=== PATIENT | male | born 1950 | race Caucasian/White ===

== ENCOUNTER 2020-04-26 17:07 | Emergency (ER) | payer OTHER, SELFPAY ==
--- NOTE | ~2020-04-26 | US_ITS ---
EXAMINATION: US venous doppler LE RT DATE: 04/26/2020 17:33 INDICATION: Right lower limb pain, swelling and erythema. TECHNIQUE: Grayscale ultrasound images without and with compression and Doppler ultrasound images of the right lower extremity veins were obtained. COMPARISON: None. FINDINGS: The visualized portions of right common femoral vein, profunda (deep) femoral vein, femoral vein, pop liteal vein, peroneal trunk, posterior tibial veins, peroneal veins, gastrocnemius vein and greater s aphenous vein outflow are patent. IMPRESSION: 1. No deep venous thrombosis in the right lower limb. Reviewed, dictated and finalized at location A.
[2020-04-26 17:10] VITALS: BP 156/66; PULSE 85; RESP 20; TEMP 36.7; O2SAT 98
[2020-04-26 17:26] LABS: Basophils Percent Auto 0.5 % (0.2-1.2); Eosinophils Absolute Auto 0.1 K/mm3 (0-0.3); Eosinophils Percent Auto 0.7 % (0-4.4); Hematocrit 38.3 % (42.0-52.0); Hemoglobin 13.3 g/dL (14.0-18.0); Immature Granulocyte Absolute 0.05 K/mm3 (0.00-0.031); Immature Granulocyte Percent A 0.6 % (0-0.5); Lymphocytes Absolute Auto 1.22 K/mm3 (0.9-3.2); Lymphocytes Percent Auto 15.1 % (18.3-44.2); Mean Corpuscular HGB Conc 34.7 g/dl (32-36); Mean Corpuscular Hemoglobin 30.5 pg (26-34); Mean Corpuscular Volume 87.8 fl (80-100); Mean Platelet Volume 9.7 fl (7.4-10.4); Monocytes Absolute Auto 0.8 K/mm3 (0.1-0.6); Monocytes Percent Auto 9.3 % (2.6-8.5); Neutrophils Percent Auto 73.8 % (45.5-73.1); Platelet Count Result 189 k/mm3 (150-375); Red Blood Count 4.36 M/mm3 (4.6-6.20); Red Cell Distribution Width 13.2 % (11.5-14.5); White Blood Count 8.1 K/mm3 (4.5-10.0)
--- NOTE | 2020-04-26 17:28 | ED.LOWEXIN ---
HPI - Extremity Injury (Lower) General Chief Complaint: Extremity Injury, Lower Stated Complaint: swollen calf Time Seen by Provider: 04/26/20 17:08 Source: patient Mode of arrival: ambulatory Limitations: no limitations History of Present Illness HPI Narrative: Patient is a 69-year-old male who presents to emergency department for evaluation of right leg pain noting some redness and swelling of the li just below the mid li to just above the level of the ankle is a mild aching pain with some swelling and discoloration. Patient denies injury or trauma notes that he was working in the yard prior to onset. Patient denies any fever chills nausea vomiting radicular symptoms or paresthesias or similar occurrence and has not taken anything for his symptoms Related Data Allergies Allergy/AdvReac Type Severity Reaction Status Date / Time heparin Allergy Severe SOB Verified 04/26/20 17:16 Review of Systems Review of Systems: All systems reviewed & are unremarkable except as noted in HPI and below PMFSH Past Medical History Medical History (Updated 04/26/20 @ 18:24 by Dominick Roberts PA-C) Hypertension Obesity Social History Social History (Updated 04/26/20 @ 18:20 by Dominick Roberts PA-C) Smoking status: Never smoker Exam Narrative: Exam Narrative: GENERAL: Well-appearing, well-nourished, and in no acute distress. HEAD: Normocephalic, atraumatic. EYES: PERRLA and EOMI. ENT: Nares clear, no rhinorrhea or epistaxis. Mucous membranes moist. CHEST: Clear to auscultation. No respiratory distress. No wheezes rales or rhonchi HEART: Regular rate and rhythm. No murmur heard. Normal peripheral pulses. EXTREMITIES: Normal range of motion. 1+ edema to the bilateral lower extremities with slightly increased swelling on the right mid li to just above the ankle with slight pink tissue no drainage no lymphangitic streaking or fluctuant lesions SKIN: Warm, dry, no rash. NEURO: No focal deficits. Alert and oriented x3. Neurovascularly intact. Capillary refill less than 2 seconds. Normal gait PSYCH: Normal mood and affect. Course Course Emergency Course: Patient in the room at this time in no distress aware of case findings treatment plan and diagnosis Vital Signs Vital signs: Vital Signs Temperature 98.1 F 04/26/20 17:10 Pulse Rate 85 04/26/20 17:10 Respiratory Rate 20 04/26/20 17:10 Blood Pressure 156/66 H 04/26/20 17:10 Pulse Oximetry 98 04/26/20 17:10 Temperature 98.1 F 04/26/20 17:10 Pulse Rate 85 04/26/20 17:10 Respiratory Rate 04/26/20 17:10 Blood Pressure 156/66 H 04/26/20 17:10 Pulse Oximetry 98 04/26/20 17:10 MDM - Extremity Injury (Lower) MDM Narrative Medical decision making narrative: Patients injury or pain is consistent with musculoskeletal etiology. No signs of neurological or vascular compromise on exam. Compartments and tisues are soft without signs of compartment syndrome. Pain is felt appropriate for further evaluation on an outpatient basis. Patient will be covered for cellulitis advised to follow with primary care and given reasons to return Medical Records Medical records narrative: Lab Data Result diagrams: 04/26/20 17:19 04/26/20 17:19 Labs: Lab Results 04/26/20 04/26/20 Range/Units 17:19 17:19 WBC 8.1 (4.5-10.0) K/mm3 RBC 4.36 L (4.6-6.20) M/mm3 Hgb 13.3 L (14.0-18.0) g/dL Hct 38.3 L (42.0-52.0) % MCV 87.8 (80-100) fl MCH 30.5 (26-34) pg MCHC 34.7 (32-36) g/dl RDW 13.2 (11.5-14.5) % Plt Count 189 (150-375) k/mm3 MPV 9.7 (7.4-10.4) fl Immature Gran % (Auto) 0.6 H (0-0.5) % Neut % (Auto) 73.8 H (45.5-73.1) % Lymph % (Auto) 15.1 L (18.3-44.2) % [place] % (Auto) 9.3 H (2.6-8.5) % Eos % (Auto) 0.7 (0-4.4) % Baso % (Auto) 0.5 (0.2-1.2) % Lymph # (Auto) 1.22 (0.9-3.2) K/mm3 [place] # (Auto) 0.8 H (0.1-0.6) K/mm3 Eos # (Auto) 0.1 (0-0.3) K/mm3 Bas
[2020-04-26 17:45] LABS: Alanine Aminotransferase 18 U/L (4-50); Albumin Level 4.2 g/dL (3.5-5.1); Alkaline Phosphatase 77 U/L (38-126); Aspartate Amino Transferase 21 U/L (17-59); Bilirubin,Total 1.3 mg/dL (0.2-1.3); Blood Urea Nitrogen 23 mg/dL (9-20); CRP < 0.5 mg/dL (<1.0); Carbon Dioxide 30 mmol/L (22-30); Chloride 103 mmol/L (98-107); Estimated CRCL calculation 70 ml/min; Estimated Glomerular Filt Rate 47; Glucose 158 mg/dL (75-110); Sodium 141 mmol/L (137-145)
[2020-04-26 17:48] LABS: Potassium 3.6 mmol/L (3.4-5.0)
[2020-04-26 18:52] VITALS: BP 132/78; PULSE 90; RESP 18; O2SAT 99
== END 2020-04-26 18:54 | disposition home or self-care (01) ==
PROVIDERS: Emergency Medicine Emergency Medical Services; Emergency Provider Emergency Medicine; PCP Internal Medicine
DX: M79.661 Pain in right lower leg (principal); I10 Essential (primary) hypertension; E66.9 Obesity, unspecified; Z68.41 Body mass index [BMI] 40.0-44.9, adult
CPT/HCPCS: 36415; 80053; 85025; 86140; 93971; 96374; 99284; J1100

== ENCOUNTER 2020-09-15 15:14 | Observation (INO) | payer OTHER, SELFPAY ==
[2020-09-15] VITALS (14 sets, daily range): BP systolic 120–148; BP diastolic 60–80; PULSE 0–77; RESP 16–27; TEMP 37.1–37.5; O2SAT 91–98; BMI 38.5
--- NOTE | ~2020-09-15 | CT_ITS ---
EXAMINATION:CT chest wo con DATE: 09/15/2020 18:43 INDICATION: Cough. TECHNIQUE: Computed tomography (CT) of the chest was performed without intravenous contrast. Automate d exposure control and iterative reconstruction technique were employed. The dose-length product (DLP ) was 757.19 mGy-cm. COMPARISON: Chest 2 views 02/11/2009 FINDINGS: There are patchy airspace and groundglass opacities in all lobes with a peripheral predomin ance, right worse than left, consistent with pneumonia. No pleural effusion. The heart size is normal . No pericardial effusion. There are coronary artery calcifications. There are calcifications of aort ic valve. There are changes of cholecystectomy. 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 There is mild thora cic spondylosis. IMPRESSION: 1. Multifocal pneumonia, right worse than left. Reviewed, dictated and finalized at location A. GE HAND
--- NOTE | 2020-09-15 16:06 | ECG_ITS ---
Measurements Intervals [place] Rate: 67 P: 56 RI: 180 QRS: 35 QRSD: 103 T: 45 QT: 418 QTc: 442 Interpretive Statements SINUS RHYTHM INCOMPLETE RIGHT BUNDLE BRANCH BLOCK BORDERLINE ST ABNORMALITY- ANTERIOR LEADS BORDERLINE ECG Electronically Signed On 09-16-2020 7:51:04 SOFTWARE DEVELOPMENT TEST ENGINEER by Kapil Mirza D.O.
--- NOTE | 2020-09-15 16:09 | ED.GENADULT ---
HPI - General Adult General Chief complaint: Weakness Stated complaint: COVID + difficulty breathing Time Seen by Provider: 09/15/20 15:44 Source: patient Mode of arrival: ambulatory Limitations: no limitations History of Present Illness HPI narrative: Patient is 69-year-old male complaining of cough, nonproductive, nausea and weakness that started couple days ago and worse today. Patient denies shortness of breath, chest pain, abdominal pain, vomiting, diarrhea or fever. Patient states that he tested positive for Covid approximately 1 week ago. Related Data Allergies Allergy/AdvReac Type Severity Reaction Status Date / Time heparin Allergy Severe SOB Verified 04/26/20 17:16 Review of Systems Review of Systems: All systems reviewed & are unremarkable except as noted in HPI and below Constitutional: Constitutional: Denies body ache(s), Denies chills, Denies excessive sweating, Denies fever(s), Denies headache(s), Denies lethargy and Denies weight loss Eyes: Eyes: Denies blurry vision, Denies change in vision and Denies loss of vision ENT: Denies dizziness, Denies ear discharge, Denies headache(s), Denies lip swelling, Denies epistaxis, Denies nasal congestion, Denies neck pain, Denies throat swelling and Denies tongue swelling Cardiovascular: Cardiovascular: Denies chest pain, Denies chest pain at rest, Denies chest pain with activity, Denies diaphoresis, Denies rapid heart rate, Denies edema, Denies irregular heart rhythm, Denies lightheadedness, Denies palpitations, Denies dyspnea and Denies dyspnea on exertion Respiratory: Respiratory: Denies chest congestion, Denies hemoptysis, Denies dyspnea and Denies dyspnea on exertion Gastrointestinal: Gastrointestinal: Denies abdominal pain, Denies melena, Denies hematochezia, Denies diarrhea, Denies nausea, Denies vomiting and Denies hematemesis Musculoskeletal: Musculoskeletal: Denies abnormal gait, Denies deformity, Denies joint swelling, Denies limited range of motion, Denies neck pain and Denies numbness Neurologic: Denies Abnormal speech present, Denies abnormal gait, Denies confusion, Denies dizziness, Denies headache(s), Denies focal weakness, Denies loss of vision, Denies numbness, Denies Other visual disturbances and Denies Sensory deficit (Neuro) Psychiatric: Psychiatric: Denies confusion, Denies depression, Denies auditory hallucinations, Denies homicidal ideation and Denies suicidal ideation Endocrine: Endocrine: Denies cold intolerance, Denies excessive sweating, Denies fatigue, Denies heat intolerance and Denies palpitations Hematologic/Lymphatic: Hematologic/Lymphatic: Denies easy bleeding and Denies easy bruising Allergic/Immunologic: Allergic/Immunologic: Denies lip swelling, Denies throat swelling and Denies tongue swelling PMFSH Past Medical History Medical History (Updated 09/15/20 @ 19:24 by Deandre Lloyd MD) Hypertension Obesity Social History Social History (Updated 04/26/20 @ 18:20 by Dominick Roberts PA-C) Smoking status: Never smoker Exam Const: General: ill appearing Orientation/consciousness: oriented to person, oriented to place, oriented to time, patient oriented x3 and No confusion Limitations: no limitations Other: Mild distress, obese HENMT: Head: normal to inspection, normocephalic and atraumatic Ears: hearing grossly normal bilaterally, TM normal on the right and TM normal on the left General nose exam: Normal external nose present, Normal nares present and No nasal discharge present Face and sinus: normal facial exam Mouth: Yes Normal oral and palatal mucosa present, Yes lip normal, Yes tongue normal and Yes oropharynx normal Throat: posterior oropharynx normal, tonsils normal and uvula midline Eyes: General: appearance normal, both eyes and all related structures Pupils: Equal, round and reactive pupils present EOM: EOMs intact bilaterally Neck: Neck: normal visual inspection, full ROM, no lymphadenopathy and no meningeal si
[2020-09-15] MEDS: PROMETHAZINE HCL 25 MG/ML AMPUL 12.5 MG IV PUSH (16:23)
[2020-09-15] MEDS: LACTATED RINGERS 1,000 ML 999 ML IV CONT (16:23)
[2020-09-15 16:37] LABS: Basophils Percent Auto 0.1 % (0.2-1.2); Hematocrit 37.2 % (42.0-52.0); Hemoglobin 13.6 g/dL (14.0-18.0); Immature Granulocyte Absolute 0.02 K/mm3 (0.00-0.031); Immature Granulocyte Percent A 0.3 % (0-0.5); Lymphocytes Absolute Auto 0.61 K/mm3 (0.9-3.2); Lymphocytes Percent Auto 8.5 % (18.3-44.2); Mean Corpuscular HGB Conc 36.6 g/dl (32-36); Mean Corpuscular Hemoglobin 30.7 pg (26-34); Mean Platelet Volume 10.3 fl (7.4-10.4); Monocytes Absolute Auto 0.5 K/mm3 (0.1-0.6); Monocytes Percent Auto 6.4 % (2.6-8.5); Neutrophils Percent Auto 84.7 % (45.5-73.1); Platelet Count Result 187 k/mm3 (150-375); Red Blood Count 4.43 M/mm3 (4.6-6.20); Red Cell Distribution Width 12.2 % (11.5-14.5); White Blood Count 7.1 K/mm3 (4.5-10.0)
[2020-09-15 16:46] LABS: Prothrombin Time 13.7 Seconds (11.1-14.7)
[2020-09-15 16:47] LABS: Partial Thromboplastin Time 27.3 SECONDS (22.3-36.8)
[2020-09-15 16:49] LABS: Lactic Acid Reflex 1.4 mmol/L (0.7-2.1)
[2020-09-15 16:52] LABS: Alanine Aminotransferase 28 U/L (4-50); Albumin Level 3.9 g/dL (3.5-5.1); Alkaline Phosphatase 88 U/L (38-126); Anion Gap 12 mmol/L (8-16); Aspartate Amino Transferase 50 U/L (17-59); Bilirubin,Total 2.3 mg/dL (0.2-1.3); Blood Urea Nitrogen 21 mg/dL (9-20); Calcium 8.7 mg/dL (8.4-10.2); Carbon Dioxide 31 mmol/L (22-30); Chloride 93 mmol/L (98-107); Estimated CRCL calculation 99 ml/min; Estimated Glomerular Filt Rate > 60; Glucose 137 mg/dL (75-110); Potassium 2.8 mmol/L (3.4-5.0); Sodium 136 mmol/L (137-145)
[2020-09-15 17:00] LABS: Troponin I 0.016 ng/mL (0.000-0.034)
--- NOTE | 2020-09-15 17:15 | PC.NURSE ---
patient alert. oriented. no distress. call light on. urinal given. patient wants a pillow.also notified patient that maintenance has been notified that thermostat in room is broken.
[2020-09-15] MEDS: KCL 20 MEQ/SW 100 ML 100 ML 50 MEQ IVPB (17:31)
--- NOTE | 2020-09-15 17:45 | PC.NURSE ---
patient keeps removing BP cuff and pulse ox. was discharged. came back to triage desk to advise staff that patient is having increasing anxiety and may end up leaving AMA if his anxiety is not treated.
--- NOTE | 2020-09-15 18:06 | PC.NURSE ---
resting on stretcher. IVF continue. K-rider continues on pump. patient on library monitor. updated on current treatment plan. has call light in reach. aware that he has CT of chest ordered.
[2020-09-15] MEDS: LORazepam INJ (*CRX) 2 MG/ML VIAL 1 MG IV PUSH (18:34)
--- NOTE | 2020-09-15 18:35 | PC.NURSE ---
plumbing service technician here to get patient for CT. patient refuses to go until he gets medication for anxiety. provider aware. order for Ativan 1mg IV. given. patient now back on stretcher for transport to CT.
--- NOTE | 2020-09-15 18:40 | PC.NURSE ---
patient to CT via stretcher.
--- NOTE | 2020-09-15 18:52 | PC.NURSE ---
patient's CT shows bilateral pneumonia. waiting for further orders from provider. c/o burning in arm from K-rider. will start another liter of NS to give during infusion.
--- NOTE | 2020-09-15 19:34 | PM.IMHP ---
H&P: HPI History of Present Illness Date/Time: 09/15/20 19:34 Chief complaint: Pneumonia, Nausea and Vomiting, Hypokalemia Narrative: This is a 69-year-old morbidly obese male with known past medical history of coronary artery disease and hypertension who presented to the hospital with a complaint of generalized weakness, nausea and vomiting. The patient relates that he tested positive for linares virus on September 04, 2020 and since then he has had intermittent fevers, ongoing coughing, and exertional shortness of breath. Today he vomited once. Associated symptoms include nonbloody diarrhea. The patient was evaluated emergency room this evening and did not require any supplemental oxygen. He was given IV fluids and found to have a low serum potassium of 2.8. CT chest was obtained in the emergency room today which demonstrated multifocal pneumonia, right worse than left. The patient denies any other significant symptoms at this time and on review he denies any headache, wheezing, chest pain, palpitations, abdominal pain, dysuria, hematuria, lower extremity swelling, or focal neurological deficits. The patient is not sure how he got Coronavirus but tells me that his was originally sick before him. The patient has been started on a K rider, IV antibiotics, and we been asked to admit the patient to the hospital for further care. Review of Systems Review of Systems: All systems reviewed & are unremarkable except as noted in HPI and below PMFSH Past Medical History Medical History Coronary artery disease Hypertension Obesity Surgical History Surgical History History of cholecystectomy Social History Social History Smoking status: Never smoker Alcohol intake: never Substance use: never Gender identity (if verbalized by the patient): Male Spiritual care concerns: No Comments family medical history reviewed and noncontributory. Meds Home Medications and Allergies Home Medications Medication Instructions Recorded Confirmed Type aspirin 81 mg PO DAILY 09/15/20 09/15/20 History atorvastatin 40 mg PO HS 09/15/20 09/15/20 History carvedilol 12.5 mg PO BID 09/15/20 09/15/20 History omeprazole 20 mg PO DAILY 09/15/20 09/15/20 History ranolazine 1,000 mg PO BID 09/15/20 09/16/20 History Allergies Allergy/AdvReac Type Severity Reaction Status Date / Time No Known Allergies Allergy Verified 09/15/20 22:52 Vital Signs Vital Signs - 24 hr 09/15/20 16:01 09/15/20 16:17 09/15/20 16:22 Temperature 37.1 C Pulse Rate 64 0 L 64 Respiratory Rate 18 Blood Pressure 120/68 Pulse Oximetry 93 91 09/15/20 16:30 09/15/20 16:45 09/15/20 17:00 Temperature Pulse Rate 73 72 Respiratory Rate 23 H 16 Blood Pressure Pulse Oximetry 95 98 96 09/15/20 17:15 09/15/20 17:30 09/15/20 17:45 Temperature Pulse Rate 76 72 77 Respiratory Rate 19 17 26 H Blood Pressure Pulse Oximetry 09/15/20 18:00 09/15/20 18:15 Temperature Pulse Rate 73 77 Respiratory Rate 27 H 19 Blood Pressure Pulse Oximetry Exam Const: General: cooperative, alert, awake and ill appearing Nutritional Appearance: obese morbidly obese Orientation/consciousness: patient oriented x3 HENMT: Head: normal to inspection General nose exam: Normal external nose present Face and sinus: normal facial exam Mouth: Yes Normal oral and palatal mucosa present and Yes oropharynx normal Eyes: Pupils: Equal, round and reactive pupils present EOM: EOMs intact bilaterally Neck: Neck: supple and no JVD Thyroid: thyroid normal Lymphatic: lymphadenopathy not noted Resp: Effort & Inspection: normal respiratory effort Auscultation: crackles ( bibasilar) Cardio: Rate: regular rate Rhythm: regular rhythm Heart sounds: no murmurs GI: Inspectio
[2020-09-15 19:42] LABS: Lactic Acid Reflex 1.1 mmol/L (0.7-2.1)
--- NOTE | 2020-09-15 21:30 | ADMGEN ---
This patient, Alber Romero, was admitted to [facility] Surg Room 322-01. Patient/family oriented to hospital policies and general routines including ID bracelet, bed and alarms, visiting hours, pain management, procedures, bathroom and other care routines, personal items, smoking policy, room service/diet, and visiting hours. Information on how to activate the Rapid Response Team has been discussed. Patient/Family are encouraged to report perceived risks to care and to ask questions if they do not understand what they are told or what they should do.
[2020-09-15] MEDS: KCL 20 MEQ/SW 100 ML 100 ML 25 MEQ IVPB (22:10)
[2020-09-15] MEDS: LACTATED RINGERS 1,000 ML 125 ML IV CONT (22:10)
[2020-09-16] VITALS (8 sets, daily range): BP systolic 110–155; BP diastolic 41–64; PULSE 65–80; RESP 16–20; TEMP 36.4–37.3; O2SAT 94–98
[2020-09-16 07:20] LABS: Basophils Percent Auto 0.2 % (0.2-1.2); Eosinophils Percent Auto 0.2 % (0-4.4); Hematocrit 31.7 % (42.0-52.0); Hemoglobin 11.2 g/dL (14.0-18.0); Immature Granulocyte Absolute 0.02 K/mm3 (0.00-0.031); Immature Granulocyte Percent A 0.4 % (0-0.5); Lymphocytes Absolute Auto 0.75 K/mm3 (0.9-3.2); Lymphocytes Percent Auto 16.4 % (18.3-44.2); Mean Corpuscular HGB Conc 35.3 g/dl (32-36); Mean Platelet Volume 10.4 fl (7.4-10.4); Monocytes Absolute Auto 0.5 K/mm3 (0.1-0.6); Monocytes Percent Auto 10.5 % (2.6-8.5); Neutrophils Absolute Auto 3.3 K/mm3 (1.3-6.7); Neutrophils Percent Auto 72.3 % (45.5-73.1); Platelet Count Result 143 k/mm3 (150-375); Red Blood Count 3.73 M/mm3 (4.6-6.20); Red Cell Distribution Width 12.1 % (11.5-14.5); White Blood Count 4.6 K/mm3 (4.5-10.0)
[2020-09-16 07:31] LABS: Anion Gap 7 mmol/L (8-16); Blood Urea Nitrogen 21 mg/dL (9-20); Carbon Dioxide 35 mmol/L (22-30); Chloride 94 mmol/L (98-107); Estimated CRCL calculation 108 ml/min; Estimated Glomerular Filt Rate > 60; Glucose 95 mg/dL (75-110); Potassium 2.6 mmol/L (3.4-5.0); Sodium 136 mmol/L (137-145)
[2020-09-16] MEDS: POTASSIUM CHLORIDE 20 MEQ TABLET 40 MEQ PO ×4 (09:09→22:07)
[2020-09-16] MEDS: PANTOPRAZOLE 40 MG TABLET PO (09:12)
[2020-09-16] MEDS: ASPIRIN 81 MG ENTERIC TABLET PO (09:12)
[2020-09-16] MEDS: carvediloL 12.5 MG TABLET PO ×2 (09:12→21:32)
[2020-09-16] MEDS: RANOLAZINE 500 MG TAB.ER.12H 1000 MG PO ×2 (09:13→21:34)
[2020-09-16 12:51] LABS: Potassium 2.7 mmol/L (3.4-5.0)
--- NOTE | 2020-09-16 14:33 | PM.IMPN ---
Progress Note: A&P Assessment and Plan (1) Pneumonia due to COVID-19 virus: Code(s): U07.1 - COVID-19; J12.89 - Other viral pneumonia Status: Acute Assessment and Plan: Chest CT demonstrated multifocal pneumonia, worse on right. Secondary to COVID-19. He tested positive for COVID-19 09/04. The majority of his symptoms have improved however he subsequently developed nausea and vomiting. He was treated with a full course of azithromycin outpatient. Discontinue IV antibiotics. He is not requiring supplemental oxygen so dexamethasone and remdesivir are not indicated. Blood and sputum cultures were obtained and are pending. Continue supportive care with bronchodilators, expectorant, and antitussive as needed. Continue droplet isolation. Continue to monitor. (2) Hypokalemia: Code(s): E87.6 - Hypokalemia Status: Acute Assessment and Plan: Likely secondary to nausea and vomiting. He is intolerant to IV KCl and refuses and further IV potassium. Continue PO supplementation. He is eating well with no further nausea or vomiting so I hope this will improve. Continue to monitor closely. Check urine creatinine and potassium. Check cortisol. (3) Nausea and vomiting: Qualifiers: Vomiting type: unspecified Vomiting Intractability: non-intractable Qualified Code(s): R11.2 - Nausea with vomiting, unspecified Code(s): R11.2 - Nausea with vomiting, unspecified Status: Resolved Assessment and Plan: Likely secondary to viral syndrome. He is tolerating his diet without any further nausea or vomiting. Continue antiemetics as needed. (4) Dehydration: Code(s): E86.0 - Dehydration Status: Resolved Assessment and Plan: Secondary to nausea and vomiting. Discontinue IV fluids as he is tolerating PO intake well and appears adequately hydrated. (5) Hypertension: Qualifiers: Hypertension type: unspecified Qualified Code(s): I10 - Essential (primary) hypertension Code(s): I10 - Essential (primary) hypertension Status: Chronic Assessment and Plan: Blood pressures are reasonably controlled. Last BP was 110/55. Continue carvedilol. Continue to monitor. (6) Coronary artery disease: Qualifiers: Coronary Disease-Associated Artery/Lesion type: unspecified vessel or lesion type [place] vs. transplanted heart: [place] heart Associated angina: without angina Qualified Code(s): I25.10 - Atherosclerotic heart disease of [place] coronary artery without angina pectoris Code(s): I25.10 - Atherosclerotic heart disease of [place] coronary artery without angina pectoris Status: Chronic Assessment and Plan: The patient has no complaints of angina. Continue ASA, carvedilol, and atorvastatin. Continue to monitor for any symptoms. (7) Obesity: Qualifiers: Obesity type: unspecified obesity type Obesity classification: unspecified obesity classification Serious obesity comorbidity presence: without serious comorbidity Qualified Code(s): E66.9 - Obesity, unspecified Code(s): E66.9 - Obesity, unspecified Status: Chronic Assessment and Plan: Healthy lifestyle choices were encouraged. He needs to implement exercise and calorie restrictions. (8) Chronic anemia: Code(s): D64.9 - Anemia, unspecified Status: Chronic Assessment and Plan: Likely multifactorial. Normocytic. At this time there is no signs or symptoms of acute blood loss. Will monitor H&H and transfuse p.r.n. Check iron studies, vitamin B12, and folate. Subjective Date/time seen: 09/16/20 14:33 Mr. Romero is a 69 y.o. male with PMH significant for CAD, HTN, and obesity who is seen in follow-up for COVID-19 infection complicated by vomiting and hypokalemia. He feels back to his regular self. He has not had any further vomiting. He has no nausea or abdominal pain. He is tolerati
[2020-09-16 17:29] LABS: Potassium 2.9 mmol/L (3.4-5.0)
[2020-09-16] MEDS: ATORVASTATIN 40 MG TABLET PO (21:32)
[2020-09-16] MEDS: ENOXAPARIN 40 MG/0.4 ML SYRINGE SUB-Q (21:34)
[2020-09-17] VITALS: BP 145/60; PULSE 73; PULSE 80; RESP 20; TEMP 37.8; O2SAT 93
[2020-09-17 04:00] VITALS: BP 122/63; PULSE 69; PULSE 71; RESP 18; TEMP 37.4; O2SAT 95
[2020-09-17 06:38] LABS: Basophils Percent Auto 0.2 % (0.2-1.2); Eosinophils Percent Auto 0.5 % (0-4.4); Hematocrit 30.3 % (42.0-52.0); Hemoglobin 10.7 g/dL (14.0-18.0); Immature Granulocyte Absolute 0.02 K/mm3 (0.00-0.031); Immature Granulocyte Percent A 0.5 % (0-0.5); Lymphocytes Absolute Auto 0.87 K/mm3 (0.9-3.2); Lymphocytes Percent Auto 21.5 % (18.3-44.2); Mean Corpuscular HGB Conc 35.3 g/dl (32-36); Mean Corpuscular Hemoglobin 30.4 pg (26-34); Mean Corpuscular Volume 86.1 fl (80-100); Mean Platelet Volume 9.8 fl (7.4-10.4); Monocytes Absolute Auto 0.4 K/mm3 (0.1-0.6); Monocytes Percent Auto 10.6 % (2.6-8.5); Neutrophils Absolute Auto 2.7 K/mm3 (1.3-6.7); Neutrophils Percent Auto 66.7 % (45.5-73.1); Platelet Count Result 143 k/mm3 (150-375); Red Blood Count 3.52 M/mm3 (4.6-6.20); Red Cell Distribution Width 12.4 % (11.5-14.5); White Blood Count 4.1 K/mm3 (4.5-10.0)
[2020-09-17 06:53] LABS: Anion Gap 5 mmol/L (8-16); Blood Urea Nitrogen 21 mg/dL (9-20); Calcium 7.9 mg/dL (8.4-10.2); Carbon Dioxide 31 mmol/L (22-30); Chloride 101 mmol/L (98-107); Estimated CRCL calculation 121 ml/min; Estimated Glomerular Filt Rate > 60; Glucose 109 mg/dL (75-110); Magnesium 2.1 mg/dL (1.6-2.3); Potassium 3.3 mmol/L (3.4-5.0); Sodium 137 mmol/L (137-145)
[2020-09-17 07:20] LABS: Cortisol Random 9.94 ug/dL
[2020-09-17 07:28] LABS: Iron 27 ug/dL (49-181)
[2020-09-17 07:37] LABS: Percent Iron Saturation 12 % (20-50)
[2020-09-17 07:55] LABS: Folic Acid 15.7 ng/mL (2.76->20)
[2020-09-17 08:00] VITALS: O2SAT 94
[2020-09-17 08:40] VITALS: BP 124/59; PULSE 65; RESP 18; TEMP 36.4; O2SAT 95
--- NOTE | 2020-09-17 09:55 | PM.DS ---
DS: Admitting Diagnosis Admitting Diagnosis Admitting Diagnosis: Pneumonia, Nausea and Vomiting, Hypokalemia DS: Discharge Diagnosis Discharge Diagnosis (1) Nausea and vomiting: Qualifiers: Vomiting Intractability: non-intractable Vomiting type: unspecified Qualified Code(s): R11.2 - Nausea with vomiting, unspecified Code(s): R11.2 - Nausea with vomiting, unspecified Status: Resolved Assessment and Plan: Discharge Summary (Date of service 09/17/20): Mr. Romero is a 69 y.o. male with PMH significant for CAD, HTN, and obesity who presented to the emergency department for the evaluation of generalized weakness, nausea, and vomiting. He tested positive for COVID-19 09/04/20. He noted that the majority of his COVID-19 symptoms improved prior to admission, however he subsequently developed nausea and vomiting which prompted him to proceed to the emergency department. Initial workup in the emergency department included CT chest with multifocal pneumonia and potassium of 2.8. He was treated with IV antibiotics and dexamethasone in the emergency department and admitted to the hospitalist service. IV antibiotics were discontinued as pneumonia was felt secondary to COVID-19 and superimposed bacterial infection was felt unlikely. IV dexamethasone and remdesivir were not indicated since he was not hypoxic. He felt much better following admission. He did not have any further vomiting, nausea, or abdominal pain. He was tolerating his diet. Nausea and vomiting were felt secondary to viral syndrome and he did not have any further symptoms. He felt much better and requested to go home. He was discharged in hemodynamically stable condition 09/17/20. Signs and symptoms which would warrant immediate return to the emergency department were discussed with the patient and he verbalized understanding. Bilirubin was also noted to be elevated at 2.3 on admission. He has a hx of cholecystectomy. I called to leave a message with Dr. Guerrero's office regarding this finding so that he could have repeat labs. (2) Pneumonia due to COVID-19 virus: Code(s): U07.1 - COVID-19; J12.89 - Other viral pneumonia Status: Acute Assessment and Plan: Chest CT demonstrated multifocal pneumonia, worse on right. Secondary to COVID-19. He tested positive for COVID-19 09/04. The majority of his symptoms have improved however he subsequently developed nausea and vomiting. He was treated with a full course of azithromycin outpatient. IV antibiotics were discontinued as pneumonia was viral and superimposed bacterial infection was felt unlikely. He was not requiring supplemental oxygen so dexamethasone and remdesivir were not indicated. Blood cultures revealed no growth. Supportive care with bronchodilators, expectorant, and antitussive were available as needed. (3) Hypokalemia: Code(s): E87.6 - Hypokalemia Status: Acute Assessment and Plan: Likely secondary to nausea and vomiting. He is intolerant to IV KCl and refused and further IV potassium. PO potassium supplementation was given. He was eating well with no further nausea or vomiting so I anticipate his hypokalemia will resolve. He was given 7 days of PO potassium with repeat BMP ordered for 09/21/20 to check potassium and determine if further supplementation will be needed per his PCP. (4) Dehydration: Code(s): E86.0 - Dehydration Status: Resolved Assessment and Plan: Secondary to nausea and vomiting.IV fluids were discontinued 09/16 since he was tolerating PO intake well and appeared adequately hydrated. (5) Hypertension: Qualifiers: Hypertension type: unspecified Qualified Code(s): I10 - Essential (primary) hypertension Code(s): I10 - Essential (primary) hypertension Status: Chronic Assessment and Plan: Blood pressures were reasonably controlled. Carvedilol was continued. (6) Coronary artery disease
[2020-09-17] MEDS: RANOLAZINE 500 MG TAB.ER.12H 1000 MG PO (10:06)
[2020-09-17] MEDS: PANTOPRAZOLE 40 MG TABLET PO (10:06)
[2020-09-17] MEDS: ENOXAPARIN 40 MG/0.4 ML SYRINGE SUB-Q (10:06)
[2020-09-17] MEDS: ASPIRIN 81 MG ENTERIC TABLET PO (10:06)
[2020-09-17] MEDS: carvediloL 12.5 MG TABLET PO (10:06)
[2020-09-17] MEDS: POTASSIUM CHLORIDE 20 MEQ TABLET.ER 40 MEQ PO (10:07)
[2020-09-17 12:00] VITALS: PULSE 66
--- NOTE | 2020-09-17 13:38 | ADMGEN ---
This patient, Alber Romero, was admitted to [facility] Surg Room 322-01. Patient/family oriented to hospital policies and general routines including ID bracelet, bed and alarms, visiting hours, pain management, procedures, bathroom and other care routines, personal items, smoking policy, room service/diet, and visiting hours. Information on how to activate the Rapid Response Team has been discussed. Patient/Family are encouraged to report perceived risks to care and to ask questions if they do not understand what they are told or what they should do.
== END 2020-09-17 13:25 | disposition home or self-care (01) ==
LOC: ANHED 19:36 → ANH3MEDSUR 20:07
PROVIDERS: Physician Assistant; Admitting Provider Family Medicine; Emergency Provider Emergency Medicine; PCP Internal Medicine; Visit Provider Hospitalist
DX: U07.1 COVID-19 (principal); J12.89 Other viral pneumonia; R53.1 Weakness; I10 Essential (primary) hypertension; E66.9 Obesity, unspecified; Z68.38 Body mass index [BMI] 38.0-38.9, adult; I25.10 Atherosclerotic heart disease of native coronary artery without angina pectoris; E87.6 Hypokalemia; E86.0 Dehydration; D64.9 Anemia, unspecified; R11.2 Nausea with vomiting, unspecified
CPT/HCPCS: 36415; 71250; 80048; 80053; 82533; 82607; 82746; 83540; 83550; 83605; 83735; 84132; 84484; 85025; 85055; 85610; 85730; 87040; 93005; 96361; 96365; 96366; 96367; 96368; 96372; 96375; 99285; A9270; G0378; J0456; J0696; J1650; J2060; J2405; J2550; J3480; J7030; J7120

== ENCOUNTER 2021-04-20 07:29 | Observation (INO) | payer MEDICARE, SELFPAY ==
[2021-04-20] VITALS (15 sets, daily range): BP systolic 132–149; BP diastolic 52–73; PULSE 53–75; RESP 18–20; TEMP 36.1–36.4; O2SAT 95–100; BMI 39.0
--- NOTE | ~2021-04-20 | XR_ITS ---
EXAMINATION: XR chest 2V EXAM DATE: 04/20/2021 08:19 INDICATION: Left-sided chest pain. TECHNIQUE: Frontal and lateral projections of the chest obtained and reviewed. Comparison is made to prior examination from 02/11/2009. FINDINGS: The lungs are clear. There are no pleural effusions. The cardiomediastinal silhouette is within normal limits. There is no pneumothorax suspected. Old left 5th rib fracture posteriorly. IMPRESSION: No acute cardiopulmonary findings. Reviewed, dictated and finalized at location A.
--- NOTE | 2021-04-20 07:32 | ECG_ITS ---
Measurements Intervals [place] Rate: 64 P: 52 CT: 202 QRS: 24 QRSD: 103 T: 31 QT: 426 QTc: 442 Interpretive Statements SINUS RHYTHM BORDERLINE AV CONDUCTION DELAY INCOMPLETE RIGHT BUNDLE BRANCH BLOCK BASELINE ARTIFACT- III BORDERLINE ECG Electronically Signed On 04-20-2021 8:43:23 CDT by Kapil Mirza D.O.
--- NOTE | 2021-04-20 07:34 | ED.CHESTPAIN ---
HPI - Chest Pain General Chief Complaint: Chest Pain Stated Complaint: cp/sob Time Seen by Provider: 04/20/21 07:34 History of Present Illness HPI narrative: Patient is a 70-year-old male who presents ER with left-sided chest pain. He was walking down some stairs letting his dogs outside when he developed sudden onset left-sided chest pain. It then began to radiate down the left arm. He tried taking some nitroglycerin with only minimal relief. He felt short of breath and was diaphoretic. Contacted EMS. He was treated with morphine/Zofran/aspirin. This significantly improved his pain. Had not been having chest pain preceding this. Last nitro use was 5 months ago. Related Data Home Medications Medication Instructions Recorded Confirmed aspirin 81 mg PO BID 09/15/20 04/20/21 atorvastatin 40 mg PO DAILY 09/15/20 04/20/21 carvedilol 12.5 mg PO BID 09/15/20 04/20/21 omeprazole 20 mg PO DAILY 09/15/20 04/20/21 ranolazine 1,000 mg PO BID 09/15/20 04/20/21 lisinopril-hydrochlorothiazide 1 tablet PO DAILY 04/20/21 04/20/21 Allergies Allergy/AdvReac Type Severity Reaction Status Date / Time No Known Allergies Allergy Verified 04/20/21 10:13 Review of Systems Review of Systems: All systems reviewed & are unremarkable except as noted in HPI and below Constitutional: Constitutional: Denies chills, Denies fever(s) and Denies weakness Comments: Diaphoresis ENT: Denies nasal congestion and Denies sore throat Cardiovascular: Cardiovascular: Reports chest pain, Denies rapid heart rate and Reports radiating jaw, neck or arm pain Respiratory: Respiratory: Denies cough, Reports dyspnea and Denies wheezing Gastrointestinal: Gastrointestinal: Denies abdominal pain, Reports nausea and Denies vomiting [facility] Past Medical History Medical History (Updated 04/21/21 @ 15:18 by Marc Castillo MD) Chronic anemia Chronic, mild normocytic anemia. Coronary artery disease Cardiac catheterization in 2018 showed a 50% blockage, per patient report. No intervention undertaken. Gastroesophageal reflux disease Hyperlipidemia Hypertension Pancreatitis (09/2018) Surgical History Surgical History (Updated 04/20/21 @ 13:45 by Alexus Tran PA-C) History of arthroscopy of right knee History of cholecystectomy History of colonoscopy with polypectomy History of partial thyroidectomy History of surgical removal of ganglion cyst Left wrist. Family History Family History (Updated 04/20/21 @ 18:13 by Aniket March RN) Father Heart disease Mother Uterine cancer Social History Social History (Updated 04/20/21 @ 13:48 by Alexus Tran PA-C) Social History: The patient lives in [place] with his . 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 No alcohol or illicit substance abuse. He designates his , Roula, as his surrogate decision maker. Code status: Full code. Exam Narrative: Exam Narrative: GENERAL: Well-appearing, obese, and in no acute distress. HEAD: Normocephalic, atraumatic. ENT: Mucous membranes moist. CHEST: Clear to auscultation. No respiratory distress. HEART: Regular rate and rhythm. Normal peripheral pulses. ABDOMEN: Soft, nontender, nondistended. EXTREMITIES: Normal range of motion. 2+ edema. SKIN: Warm, dry, no rash. NEURO: Alert and oriented x3. PSYCH: Normal mood and affect. Course Course Emergency Course: Admit to hospitalist service for chest pain rule out. Vital Signs Vital signs: Vital Signs Temperature 97.6 F 04/20/21 07:26 Pulse Rate 66 04/20/21 07:26 Respiratory Rate 20 04/20/21 07:26 Blood Pressure 133/71 04/20/21 07:26 Pulse Oximetry 99 04/20/21 07:26 Temperature 97.3 F L 04/21/21 11:25 Pulse Rate 53 L 04/21/21 14:00 Respiratory Rate 18 04/21/21 11:25 Blood Pressure 126/46 L 04/21/21 11:25 Pulse Oximetry 99 04/21/21 11:25 MDM - Chest Pain Lab Data Result diagrams: 04/21/21 04:39 04/21/21 04:39
[2021-04-20 08:13] LABS: Basophils Percent Auto 0.6 % (0.2-1.2); Eosinophils Absolute Auto 0.1 K/mm3 (0-0.3); Eosinophils Percent Auto 0.9 % (0-4.4); Hematocrit 36.1 % (42.0-52.0); Hemoglobin 12.4 g/dL (14.0-18.0); Immature Granulocyte Absolute 0.02 K/mm3 (0.00-0.031); Immature Granulocyte Percent A 0.3 % (0-0.5); Lymphocytes Absolute Auto 1.35 K/mm3 (0.9-3.2); Lymphocytes Percent Auto 19.3 % (18.3-44.2); Mean Corpuscular HGB Conc 34.3 g/dl (32-36); Mean Corpuscular Hemoglobin 29.8 pg (26-34); Mean Corpuscular Volume 86.8 fl (80-100); Mean Platelet Volume 9.8 fl (7.4-10.4); Monocytes Absolute Auto 0.7 K/mm3 (0.1-0.6); Monocytes Percent Auto 9.6 % (2.6-8.5); Neutrophils Absolute Auto 4.8 K/mm3 (1.3-6.7); Neutrophils Percent Auto 69.3 % (45.5-73.1); Platelet Count Result 181 k/mm3 (150-375); Red Blood Count 4.16 M/mm3 (4.6-6.20); Red Cell Distribution Width 12.7 % (11.5-14.5)
[2021-04-20 08:26] LABS: Anion Gap 8 mmol/L (8-16); Blood Urea Nitrogen 26 mg/dL (9-20); Calcium 9.2 mg/dL (8.4-10.2); Carbon Dioxide 29 mmol/L (22-30); Chloride 103 mmol/L (98-107); Estimated CRCL calculation 95 ml/min; Estimated Glomerular Filt Rate > 60; Glucose 143 mg/dL (75-110); Potassium 2.9 mmol/L (3.4-5.0); Sodium 140 mmol/L (137-145)
[2021-04-20 08:27] LABS: Partial Thromboplastin Time 24.4 SECONDS (22.3-36.8); Prothrombin Time 13.4 Seconds (11.1-14.7)
[2021-04-20 08:37] LABS: Troponin I < 0.012 ng/mL (0.000-0.034)
[2021-04-20] MEDS: POTASSIUM CHLORIDE 20 MEQ TABLET 40 MEQ PO (09:43)
--- NOTE | 2021-04-20 10:07 | ADMGEN ---
This patient, Alber Romero, was admitted to IMU Room 210-01. Patient/family oriented to hospital policies and general routines including ID bracelet, bed and alarms, visiting hours, pain management, procedures, bathroom and other care routines, personal items, smoking policy, room service/diet, and visiting hours. Information on how to activate the Rapid Response Team has been discussed. Patient/Family are encouraged to report perceived risks to care and to ask questions if they do not understand what they are told or what they should do.
[2021-04-20 10:55] LABS: Troponin I < 0.012 ng/mL (0.000-0.034)
--- NOTE | 2021-04-20 13:15 | PM.IMHP ---
H&P: HPI History of Present Illness Date/Time: 04/20/21 13:15 <Alexus Tran PA-C - Last Filed: 04/20/21 23:52> Chief Complaint: Chest pain. <Alexus Tran PA-C - Last Filed: 04/20/21 23:52> Narrative: This is a 70-year-old male with history of coronary artery disease noted on cardiac catheterization in 2018 with reports of 50% blockage in an unknown vessel (per patient report), hypertension, hyperlipidemia, and GERD who presented to the emergency department earlier today from home for evaluation of chest pain. This morning he went to let the dogs out to go to the bathroom when he developed sudden onset of sharp pain in the left side of his chest radiating into the shoulder and down the arm. He also broke out in a cold sweat and was feeling somewhat short of breath. He has had similar symptoms occur in the past and was told by his study lead, Dr. Manley, that he likely suffers from angina and he was started on ranolazine. He did take 1 nitroglycerin and it seemed to help his discomfort. By that time EMS had arrived and when they loaded him on the rig he began to have pretty significant nausea and had dry heaves. EKG on arrival to the emergency department showed no acute ST segment changes and his troponins have been negative thus far. Due to his coronary artery disease he is being admitted overnight for further observation and for consultation with the study lead. At the time my evaluation he has no specific complaints and he is specifically denies current chest pain and shortness of breath. The pain does not feel similar to when he had pancreatitis before. 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 <Alexus Tran PA-C - Last Filed: 04/20/21 23:52> Review of Systems Review of Systems: Narrative: Twelve systems were reviewed with pertinent positives and negatives as per HPI. No fevers. No recent cold and flu symptoms. No orthopnea or PND. He has issues with intermittent right lower extremity edema and that has been ongoing for years and is unchanged. No history of DVT however he has had phlebitis in that leg before. He denies pleuritic pain. No syncope or near syncope. Except as documented, all other systems were reviewed and are negative. <Alexus Tran PA-C - Last Filed: 04/20/21 23:52> [facility] Past Medical History Medical History: Medical History (Updated 04/20/21 @ 23:47 by Alexus Tran PA-C) Chronic anemia Chronic, mild normocytic anemia. Coronary artery disease Cardiac catheterization in 2018 showed a 50% blockage, per patient report. No intervention undertaken. Gastroesophageal reflux disease Hyperlipidemia Hypertension Pancreatitis (09/2018) <Alexus Tran PA-C - Last Filed: 04/20/21 23:52> Surgical History Surgical History: Surgical History (Updated 04/20/21 @ 13:45 by Alexus Tran PA-C) History of arthroscopy of right knee History of cholecystectomy History of colonoscopy with polypectomy History of partial thyroidectomy History of surgical removal of ganglion cyst Left wrist. <Alexus Tran PA-C - Last Filed: 04/20/21 23:52> Family History Family History: Family History (Updated 04/20/21 @ 18:13 by Aniket March RN) Father Heart disease Mother Uterine cancer <Alexus Tran PA-C - Last Filed: 04/20/21 23:52> Social History Social History: Social History (Updated 04/20/21 @ 13:48 by Alexus Tran PA-C) Social History: The patient lives in [place] with his . 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 No alcohol or illicit substance abuse. He designates his , Roula, as his surrogate decision maker. Code status: Full code. <Alexus Tran PA-C - Last Filed: 04/20/21 23:52> Meds Home Medications and Allergi
[2021-04-20 14:01] LABS: Magnesium 1.9 mg/dL (1.6-2.3); Potassium 3.3 mmol/L (3.4-5.0)
[2021-04-20 14:14] LABS: Troponin I < 0.012 ng/mL (0.000-0.034)
[2021-04-20] MEDS: ACETAMINOPHEN 325 MG TABLET 650 MG PO (14:32)
[2021-04-20] MEDS: hydroCHLOROthiazide 25 MG TABLET PO (15:56)
[2021-04-20] MEDS: lisinopriL 20 MG TABLET PO (15:56)
[2021-04-20] MEDS: carvediloL 12.5 MG TABLET PO (20:59)
[2021-04-20] MEDS: RANOLAZINE 500 MG TAB.ER.12H 1000 MG PO (20:59)
[2021-04-21] VITALS (13 sets, daily range): BP systolic 126–145; BP diastolic 46–65; PULSE 53–67; RESP 18–20; TEMP 36.2–36.5; O2SAT 98–100
[2021-04-21] MEDS: POTASSIUM CHLORIDE 20 MEQ TABLET PO (01:44)
[2021-04-21 05:00] LABS: Hematocrit 32.3 % (42.0-52.0); Hemoglobin 11.4 g/dL (14.0-18.0); Mean Corpuscular HGB Conc 35.3 g/dl (32-36); Mean Corpuscular Hemoglobin 30.3 pg (26-34); Mean Corpuscular Volume 85.9 fl (80-100); Mean Platelet Volume 9.9 fl (7.4-10.4); Platelet Count Result 145 k/mm3 (150-375); Red Blood Count 3.76 M/mm3 (4.6-6.20); Red Cell Distribution Width 12.4 % (11.5-14.5)
[2021-04-21 05:17] LABS: Alanine Aminotransferase 23 U/L (4-50); Albumin Level 3.4 g/dL (3.5-5.1); Alkaline Phosphatase 69 U/L (38-126); Anion Gap 6 mmol/L (8-16); Aspartate Amino Transferase 20 U/L (17-59); Blood Urea Nitrogen 20 mg/dL (9-20); Calcium 9.2 mg/dL (8.4-10.2); Carbon Dioxide 30 mmol/L (22-30); Chloride 102 mmol/L (98-107); Estimated CRCL calculation 97 ml/min; Estimated Glomerular Filt Rate > 60; Glucose 116 mg/dL (75-110); Magnesium 1.7 mg/dL (1.6-2.3); Potassium 3.2 mmol/L (3.4-5.0); Sodium 138 mmol/L (137-145)
[2021-04-21] MEDS: carvediloL 12.5 MG TABLET PO (09:19)
[2021-04-21] MEDS: RANOLAZINE 500 MG TAB.ER.12H 1000 MG PO (09:19)
[2021-04-21] MEDS: ASPIRIN 81 MG ENTERIC TABLET PO ×2 (09:19→17:17)
[2021-04-21] MEDS: ATORVASTATIN 40 MG TABLET PO (09:19)
[2021-04-21] MEDS: hydroCHLOROthiazide 25 MG TABLET PO (09:19)
[2021-04-21] MEDS: lisinopriL 20 MG TABLET PO (09:20)
[2021-04-21] MEDS: PANTOPRAZOLE 40 MG TABLET PO (09:20)
--- NOTE | 2021-04-21 14:25 | PM.IMPN ---
Progress Note: A&P Assessment and Plan (1) Chest pain: Code(s): R07.9 - Chest pain, unspecified Status: Acute Assessment and Plan: 04/21/21 14:25 Patient is 70-year-old male moderately obese with history of coronary artery disease in 2018 on 04/20 patient was letting his dog out in the morning and he felt left-sided chest pain took nitroglycerin with little relief presented emergency depart for further evaluate, so far 3 sets of cardiac enzymes are negative and there are no acute changes on EKG, his pain has improved currently denies any chest pain shortness of breath palpitation fever or chills, patient will see immigration consultant, will go ahead order Lexiscan for tomorrow and further recommendation to follow. (2) Hypokalemia: Code(s): E87.6 - Hypokalemia Status: Acute Assessment and Plan: Will monitor and supple (3) Chronic anemia: Code(s): D64.9 - Anemia, unspecified Status: Acute Assessment and Plan: Will check iron profile and stool Hemoccult (4) Hypertension: Qualifiers: Hypertension type: unspecified Qualified Code(s): I10 - Essential (primary) hypertension Code(s): I10 - Essential (primary) hypertension Status: Chronic Assessment and Plan: Will continue home medication and monitor (5) Hyperlipidemia: Code(s): E78.5 - Hyperlipidemia, unspecified Status: Acute Assessment and Plan: Will continue home medication (6) Gastroesophageal reflux disease: Code(s): K21.9 - Gastro-esophageal reflux disease without esophagitis Status: Inactive Assessment and Plan: Will continue PPI Additional Plan The patient presents today with left-sided chest pain. EKG showed no acute changes and his troponins have been negative thus far. At this time he is being admitted for monitoring overnight. Continue to trend serial troponins. Cardiology consulted for recommendations as well, given his history. Continue ranolazine, aspirin, statin, and beta-marcos. Potassium will be replaced and monitored. As he is on a thiazide diuretic and has had issues with hypokalemia in the past, I am going to start him on 20 milliequivalents of potassium a day. Blood pressures were reviewed and they are reasonable but a bit high. Antihypertensives will be continued and blood pressures will be monitored closely. He has a chronic, mild anemia which is stable on review of previous labs. Continue statin and check LFTs. No acute issues with GERD, continue PPI. Subjective Date/time seen: 04/21/21 14:25 Patient is 70-year-old male moderately obese with history of coronary artery disease in 2018 on 04/20 patient was letting his dog out in the morning and he felt left-sided chest pain took nitroglycerin with little relief presented emergency depart for further evaluate, so far 3 sets of cardiac enzymes are negative and there are no acute changes on EKG, his pain has improved currently denies any chest pain shortness of breath palpitation fever or chills, patient will see immigration consultant, will go ahead order Lexiscan for tomorrow and further recommendation to follow. Review of Systems Review of Systems: All systems reviewed & are unremarkable except as noted in HPI and below Exam Narrative: Exam Narrative: Moderately obese Patient is comfortable, NAD HEENT: eyes are clear and none icteric LUNGS:CTA HEART: RR S1S2 ABD: BS+, Soft and nontender Lower extremities: no edema SKIN: nonjaundiced Neuro: grossly intact. Objective Data Vital Signs Vital Signs: Vital Signs - 24 hr 04/20/21 15:53 04/20/21 16:00 04/20/21 18:00 Temperature 97.4 F L Pulse Rate 54 L 57 L 57 L Respiratory Rate 18 Blood Pressure 142/61 H Pulse Oximetry 98 04/20/21 20:00 04/20/21 20:59 04/20/21 21:48 Temperature 97.1 F L Pulse Rate 57 L 61 68 Respiratory Rate 20 Blood Pressure 132/52 L Pulse Oximetry 100 04/21/21 00:00 04/21/21 02:00
--- NOTE | 2021-04-21 15:12 | PM.CNCAR ---
Assessment and Plan Assessment and plan (1) Chest pain: Code(s): R07.9 - Chest pain, unspecified Status: Acute Assessment and Plan: NO EPISODES SINCE ADMISSION CE NEGATIVE NO ACUTE EKG CHANGES DUE TO WEEKEND SCHEDULE NO OTHER DIAGNOSTIC TESTS WERE ABLE TO BE PERFORMED PT PREFERS TO GO HOME AND CONTACT HIS PRIMARY SALES UTILITY REPRESENTATIVE FOR FURTHER OUTPATIENT EVALUATION WILL ADJUST MEDS (2) Chronic anemia: Code(s): D64.9 - Anemia, unspecified Status: Acute (3) Hyperlipidemia: Code(s): E78.5 - Hyperlipidemia, unspecified Status: Acute (4) Coronary artery disease: Qualifiers: Associated angina: without angina Coronary Disease-Associated Artery/Lesion type: unspecified vessel or lesion type [place] vs. transplanted heart: [place] heart Qualified Code(s): I25.10 - Atherosclerotic heart disease of [place] coronary artery without angina pectoris Code(s): I25.10 - Atherosclerotic heart disease of [place] coronary artery without angina pectoris Status: Chronic (5) Hypertension: Qualifiers: Hypertension type: unspecified Qualified Code(s): I10 - Essential (primary) hypertension Code(s): I10 - Essential (primary) hypertension Status: Chronic (6) Hypokalemia: Code(s): E87.6 - Hypokalemia Status: Acute Assessment and Plan: THANK YOU FOR CONSULT. PT APPEARS STABLE FROM CARDIAC STANDPOINT HE NEEDS TO FU WITH HIS PRIMARY SALES UTILITY REPRESENTATIVE IN ONE WEEK. History of Present Illness History of Present Illness Consult date/time: 04/21/21 Mr. Romero ia a pleasant 70-year-old WM with PMH of CAD s/p MD who presented[facility] ER yesterday AM due to chest discomfort. PT STATES THAT HE HAD EPISODES OF SHARP - CHEST DISCOMFORT ON thursday pm. nO MORE EPISODES SINCE THEN. pT STATES THAT HRE FOLLOWS I[facility] [place] [facility] WITH HIS SALES UTILITY REPRESENTATIVE AT [facility] [facility] IN [place]. lAST APPOINTMRNT WAS ABOUT 4 MONTHS AGO. HE TAKES ASA, CARVEDILOL AND ATORVASTATIN. NEVER BEEN ON IMDUR. PT WAS SEEN AND EXAMINED, CHART WAS REVIEWED, CASE D/W HOSPITALIST AND PT'S NURSE. Reason For Visit: cp/sob Review of Systems Review of Systems: All systems reviewed & are unremarkable except as noted in HPI and below Constitutional: Constitutional: Reports as per HPI Eyes: Eyes: Reports as per HPI ENT: Reports system reviewed and no additional complaints, except as documented and Reports as per HPI Cardiovascular: Cardiovascular: Reports as per HPI Respiratory: Respiratory: Reports as per HPI Gastrointestinal: Gastrointestinal: Reports as per HPI Genitourinary: Genitourinary: Reports as per HPI Musculoskeletal: Musculoskeletal: Reports as per HPI [facility] Past Medical History Medical History (Updated 04/21/21 @ 15:18 by Marc Castillo MD) Chronic anemia Chronic, mild normocytic anemia. Coronary artery disease Cardiac catheterization in 2018 showed a 50% blockage, per patient report. No intervention undertaken. Gastroesophageal reflux disease Hyperlipidemia Hypertension Pancreatitis (09/2018) Surgical History Surgical History (Updated 04/20/21 @ 13:45 by Alexus Tran PA-C) History of arthroscopy of right knee History of cholecystectomy History of colonoscopy with polypectomy History of partial thyroidectomy History of surgical removal of ganglion cyst Left wrist. Family History Family History (Updated 04/20/21 @ 18:13 by Aniket March RN) Father Heart disease Mother Uterine cancer Social History Social History (Updated 04/20/21 @ 13:48 by Alexus Tran PA-C) Social History: The patient lives in [place] with his . 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 No alcohol or illicit substance abuse. He designates his , Roula, as his surrogate decision maker. Code status: Full code. Meds Home Medications and Allergies Home Medications Medication Instructions Recorded Confirmed Type aspir
--- NOTE | 2021-04-21 15:44 | PM.DS ---
DS: Admitting Diagnosis Admitting Diagnosis Admitting Diagnosis: chest pain DS: Discharge Diagnosis Discharge Diagnosis (1) Chest pain: Code(s): R07.9 - Chest pain, unspecified Status: Acute Assessment and Plan: 04/21/21 14:25 Patient is 70-year-old male moderately obese with history of coronary artery disease in 2018 on 04/20 patient was letting his dog out in the morning and he felt left-sided chest pain took nitroglycerin with little relief presented emergency depart for further evaluate, so far 3 sets of cardiac enzymes are negative and there are no acute changes on EKG, his pain has improved currently denies any chest pain shortness of breath palpitation fever or chills, patient will see coal cager, will go ahead order Lexiscan for tomorrow and further recommendation to follow. (2) Hypokalemia: Code(s): E87.6 - Hypokalemia Status: Acute Assessment and Plan: Will monitor and supple (3) Chronic anemia: Code(s): D64.9 - Anemia, unspecified Status: Acute Assessment and Plan: Will check iron profile and stool Hemoccult (4) Hypertension: Qualifiers: Hypertension type: unspecified Qualified Code(s): I10 - Essential (primary) hypertension Code(s): I10 - Essential (primary) hypertension Status: Chronic Assessment and Plan: Will continue home medication and monitor (5) Hyperlipidemia: Code(s): E78.5 - Hyperlipidemia, unspecified Status: Acute Assessment and Plan: Will continue home medication (6) Gastroesophageal reflux disease: Code(s): K21.9 - Gastro-esophageal reflux disease without esophagitis Status: Inactive Assessment and Plan: Will continue PPI DS: Summary Hospital Course Reason for hospitalization: Chief Complaint: Chest pain. <Alexus Tran PA-C - Last Filed: 04/20/21 23:52> Narrative: This is a 70-year-old male with history of coronary artery disease noted on cardiac catheterization in 2018 with reports of 50% blockage in an unknown vessel (per patient report), hypertension, hyperlipidemia, and GERD who presented to the emergency department earlier today from home for evaluation of chest pain. This morning he went to let the dogs out to go to the bathroom when he developed sudden onset of sharp pain in the left side of his chest radiating into the shoulder and down the arm. He also broke out in a cold sweat and was feeling somewhat short of breath. He has had similar symptoms occur in the past and was told by his coal cager, Dr. Manley, that he likely suffers from angina and he was started on ranolazine. He did take 1 nitroglycerin and it seemed to help his discomfort. By that time EMS had arrived and when they loaded him on the rig he began to have pretty significant nausea and had dry heaves. EKG on arrival to the emergency department showed no acute ST segment changes and his troponins have been negative thus far. Due to his coronary artery disease he is being admitted overnight for further observation and for consultation with the coal cager. At the time my evaluation he has no specific complaints and he is specifically denies current chest pain and shortness of breath. The pain does not feel similar to when he had pancreatitis before. 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 <Alexus Tran PA-C - Last Filed: 04/20/21 23:52> Hospital Course: Patient is 70-year-old male moderately obese with history of coronary artery disease in 2018 on 04/20 patient was letting his dog out in the morning and he felt left-sided chest pain took nitroglycerin with little relief presented emergency depart for further evaluate, so far 3 sets of cardiac enzymes are negative and there are no acute changes on EKG, his pain has im
[2021-04-21] MEDS: POTASSIUM CHLORIDE 20 MEQ TABLET.ER PO (17:17)
[2021-04-21] MEDS: ISOSORBIDE MONONITRATE 30 MG TAB.ER.24H PO (17:17)
--- NOTE | 2021-04-21 18:55 | PC.NURSE ---
Patient discharged to private car at 1855. Eduation was provided on new prescriptions and patient had no further questions at this time.
== END 2021-04-21 18:33 | disposition home or self-care (01) ==
LOC: ANHED 08:25 → ANHIMU 04-21 01:26
PROVIDERS: Physician Assistant; Admitting Provider Family Medicine; Emergency Provider Emergency Medicine; PCP Internal Medicine; Visit Provider Family Medicine
DX: R07.9 Chest pain, unspecified (principal); I25.10 Atherosclerotic heart disease of native coronary artery without angina pectoris; I10 Essential (primary) hypertension; E78.5 Hyperlipidemia, unspecified; K21.9 Gastro-esophageal reflux disease without esophagitis; E87.6 Hypokalemia; D64.9 Anemia, unspecified; E66.9 Obesity, unspecified; Z68.38 Body mass index [BMI] 38.0-38.9, adult
CPT/HCPCS: 36415; 71046; 80048; 80053; 83735; 84132; 84484; 85025; 85027; 85610; 85730; 93005; 99285; A9270; G0378

== ENCOUNTER 2021-05-24 07:33 | Emergency (ER) | payer MEDICARE, SELFPAY ==
[2021-05-24 07:38] VITALS: BP 148/61; PULSE 73; RESP 18; TEMP 37; O2SAT 98
[2021-05-24] MEDS: HYDROcodone/acetaminophen (*CRX) 5-325 MG TABLET 1 TAB PO (08:23)
[2021-05-24] MEDS: IBUPROFEN 600 MG TABLET PO (08:24)
--- NOTE | 2021-05-24 08:37 | ED.GENADULT ---
HPI - General Adult General Chief complaint: Extremity Problem,Nontraumatic Stated complaint: Cramping and pain in feet and legs Time Seen by Provider: 05/24/21 08:14 Source: patient and family Mode of arrival: ambulatory Limitations: no limitations History of Present Illness HPI narrative: Patient is 70 years old white male presented to the ED with pain of the extremities and joints including the ankles, knees, hips, shoulders, elbows and hands started this morning, could not sleep last night, had Advil at 3:00 in the morning. Patient been moving over the last 48 hours with a lot of lifting and moving. Patient denies any fever, chills, nausea, vomiting, having similar symptoms. Patient is fully vaccinated for COVID-19. Patient not been taking his potassium supplement in the last few days. Related Data Home Medications Medication Instructions Recorded Confirmed aspirin 81 mg PO BID 09/15/20 04/20/21 atorvastatin 40 mg PO DAILY 09/15/20 04/20/21 carvedilol 12.5 mg PO BID 09/15/20 04/20/21 omeprazole 20 mg PO DAILY 09/15/20 04/20/21 ranolazine 1,000 mg PO BID 09/15/20 04/20/21 lisinopril-hydrochlorothiazide 1 tablet PO DAILY 04/20/21 04/20/21 Allergies Allergy/AdvReac Type Severity Reaction Status Date / Time No Known Allergies Allergy Verified 05/24/21 07:43 Review of Systems Review of Systems: Narrative: CONSTITUTIONAL: Denies fever, chills, or sweats. EYES: Denies visual changes, redness, or discharge. ENT: Denies rhinorrhea, congestion, sore throat, or otalgia. CARDIOVASCULAR: Denies chest pain, palpitations, or edema. RESPIRATORY: Denies cough or dyspnea. GASTROINTESTINAL: Denies abdominal pain, nausea, vomiting, or diarrhea. GENITOURINARY: Denies dysuria or hematuria. SKIN: Denies rash or itching. MUSCULOSKELETAL: Denies back pain, joint pain, or myalgia. NEUROLOGIC: Denies headache, numbness, or weakness. PSYCHIATRIC: Denies anxiety or depression. [facility] Past Medical History Medical History Chronic anemia Chronic, mild normocytic anemia. Coronary artery disease Cardiac catheterization in 2018 showed a 50% blockage, per patient report. No intervention undertaken. Gastroesophageal reflux disease Hyperlipidemia Hypertension Pancreatitis (09/2018) Surgical History Surgical History History of arthroscopy of right knee History of cholecystectomy History of colonoscopy with polypectomy History of partial thyroidectomy History of surgical removal of ganglion cyst Left wrist. Family History Family History Father Heart disease Mother Uterine cancer Social History Social History Social History: The patient lives in [place] with his . 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 No alcohol or illicit substance abuse. He designates his , Roula, as his surrogate decision maker. Code status: Full code. Gender identity (if verbalized by the patient): Male Exam Narrative: Exam Narrative: General appearance: Well-developed, well-nourished Skin: Normal color Head: Normocephalic, nontraumatic Eyes: Clear conjunctiva ENT: Oropharynx normal, ears normal, nose normal Neck: Supple, nontender Chest and respiratory: Airway patent, no respiratory distress, no accessory muscle use Heart: Regular rate/rhythm Abdomen: Soft, nontender, no organomegaly, quiet bowel sounds Vascular: Normal peripheral pulses, normal capillary refill. Musculoskeletal: Painful movement of the extremities. Joint exam showed no swelling, no erythematous changes, no warmth Neurologic: Alert and oriented ?3, MEDIA MARKETING MANAGER is normal as tested, no gross motor deficit
[2021-05-24 09:09] LABS: Basophils Percent Auto 0.4 % (0.2-1.2); Eosinophils Absolute Auto 0.1 K/mm3 (0-0.3); Eosinophils Percent Auto 1.6 % (0-4.4); Hematocrit 31.6 % (42.0-52.0); Hemoglobin 10.8 g/dL (14.0-18.0); Immature Granulocyte Absolute 0.02 K/mm3 (0.00-0.031); Immature Granulocyte Percent A 0.4 % (0-0.5); Lymphocytes Absolute Auto 1.12 K/mm3 (0.9-3.2); Mean Corpuscular HGB Conc 34.2 g/dl (32-36); Mean Corpuscular Hemoglobin 30.6 pg (26-34); Mean Corpuscular Volume 89.5 fl (80-100); Mean Platelet Volume 9.3 fl (7.4-10.4); Monocytes Absolute Auto 0.6 K/mm3 (0.1-0.6); Monocytes Percent Auto 11.3 % (2.6-8.5); Neutrophils Absolute Auto 3.7 K/mm3 (1.3-6.7); Neutrophils Percent Auto 66.3 % (45.5-73.1); Platelet Count Result 156 k/mm3 (150-375); Red Blood Count 3.53 M/mm3 (4.6-6.20); Red Cell Distribution Width 14.1 % (11.5-14.5); White Blood Count 5.6 K/mm3 (4.5-10.0)
[2021-05-24 09:21] LABS: Alanine Aminotransferase 21 U/L (4-50); Albumin Level 3.5 g/dL (3.5-5.1); Alkaline Phosphatase 73 U/L (38-126); Anion Gap 7 mmol/L (8-16); Aspartate Amino Transferase 25 U/L (17-59); Bilirubin,Total 1.7 mg/dL (0.2-1.3); Blood Urea Nitrogen 14 mg/dL (9-20); Calcium 8.7 mg/dL (8.4-10.2); Carbon Dioxide 26 mmol/L (22-30); Chloride 107 mmol/L (98-107); Creatine Kinase 287 U/L (55-170); Estimated CRCL calculation 106 ml/min; Estimated Glomerular Filt Rate > 60; Glucose 123 mg/dL (75-110); Potassium 2.8 mmol/L (3.4-5.0); Sodium 140 mmol/L (137-145)
[2021-05-24 09:22] LABS: CRP 0.5 mg/dL (<1.0)
[2021-05-24 10:01] LABS: Erythrocyte Sedimentation Rate 23 mm/hr (0-20)
[2021-05-24 10:16] VITALS: BP 112/77; PULSE 77; RESP 18; O2SAT 99
[2021-05-24] MEDS: POTASSIUM CHLORIDE 20 MEQ PACKET (FOR LIQUID) 40 MEQ PO (10:16)
== END 2021-05-24 10:24 | disposition home or self-care (01) ==
PROVIDERS: Emergency Provider Emergency Medicine; PCP Internal Medicine
DX: M62.9 Disorder of muscle, unspecified (principal); E87.6 Hypokalemia
CPT/HCPCS: 36415; 80053; 82550; 85025; 85652; 86140; 99283; A9270

== ENCOUNTER 2021-07-06 10:30 | Emergency (ER) | payer MEDICARE, SELFPAY ==
[2021-07-06] VITALS (36 sets, daily range): BP systolic 111–158; BP diastolic 51–78; PULSE 57–85; RESP 12–22; TEMP 36.8–36.9; O2SAT 97–100
--- NOTE | ~2021-07-06 | XR_ITS ---
EXAMINATION: XR chest 1V portable DATE: 07/06/2021 11:02 INDICATION: Syncope and dizziness with recent falls. TECHNIQUE: frontal view of the chest was obtained. COMPARISON: Chest radiograph dated 04/20/2021 FINDINGS: The lungs remain clear with no focal airspace opacities, pulmonary edema, pleural effusion or pneumot horax. The cardiomediastinal silhouette is normal. Old healed posterior left fifth rib fracture. IMPRESSION: 1. No acute cardiopulmonary disease. Reviewed, dictated and finalized at location A.
--- NOTE | ~2021-07-06 | CT_ITS ---
EXAMINATION: CT brain wo con, CT facial bones wo con DATE: 07/06/2021 11:39 INDICATION: Dizziness and fall with head and facial injury TECHNIQUE: 1. Computed tomography (CT) of the head was performed without intravenous contrast. Sagittal and shaun nal reconstructions were obtained. The mA was adjusted according to patient size. Iterative reconstru ction technique was employed. The dose-length product was 681 mGy-cm. 2. CT of the facial bones and maxillofacial region was performed without intravenous contrast. Sagitt al and coronal reconstructions were obtained. Automated exposure control and iterative reconstruction technique were employed. The dose-length product was 557.62 mGy-cm. COMPARISON: None. FINDINGS: Head CT: No calvarial fracture. No acute intracranial hemorrhage, acute infarction or abnormal extra axial flu id collection. There is minimal scattered white matter hypoattenuation consistent with chronic small vessel ischemic disease. Ventricles are normal and symmetric. No mass/mass effect. Maxillofacial CT: No maxillofacial fractures. Nasal septum is midline. Orbits are normal. Mild mucosal thickening at th e bilateral ethmoid and sphenoid sinuses and at the right maxillary sinus. Mastoid air cells and midd le ear cavities are clear. Mild spondylosis in the upper cervical spine. IMPRESSION: 1. No calvarial or maxillofacial fractures. 2. No acute intracranial process. 3. Minimal scattered white matter hypoattenuation consistent with chronic small vessel ischemic disea se. Reviewed, dictated and finalized at location A. IMPRESSION: 1. No calvarial or maxillofacial fractures. 2. No acute intracranial process. 3. Minimal scattered white matter hypoattenuation consistent with chronic small vessel ischemic disease.
--- NOTE | ~2021-07-06 | CT_ITS ---
EXAMINATION: CT lumbar spine wo con DATE: 07/06/2021 13:46 INDICATION: Back pain TECHNIQUE: Computed tomography (CT) of the lumbar spine was performed without intravenous contrast. A utomated exposure control and iterative reconstruction technique were employed. The dose-length produ ct was 1399.35 mGy-cm. COMPARISON: None FINDINGS: Alignment is normal. Vertebral body heights are normal. No fracture. Disc heights are normal. Multile josh lumbar facet osteoarthritis, mild to moderate on the right at L5-S1 and otherwise mild throughout the remainder of the lumbar spine. Mild disc bulges at L3-L4 and L4-L5 contributing to mild bilatera l neural foraminal stenosis, left greater than right at L4-L5. Additional mild neural foraminal steno sis on the right at L5-S1. No significant central canal stenosis. Left common iliac vein stenting. Mi ld bilateral sacroiliac osteoarthritis. IMPRESSION: 1. Very mild spondylosis at the lower lumbar spine. No acute osseous abnormality. 2. Mild bilateral sacroiliac osteoarthritis. Reviewed, dictated and finalized at location A. IMPRESSION: 1. Very mild spondylosis at the lower lumbar spine. No acute osseous abnormalit y. 2. Mild bilateral sacroiliac osteoarthritis.
--- NOTE | 2021-07-06 10:34 | ECG_ITS ---
Measurements Intervals [place] Rate: 59 P: 53 NV: 199 QRS: 28 QRSD: 102 T: 20 QT: 456 QTc: 455 Interpretive Statements SINUS BRADYCARDIA BORDERLINE ECG Electronically Signed On 07-06-2021 12:22:55 CDT by Kapil Mirza D.O.
--- NOTE | 2021-07-06 10:43 | ED.SYNCOPE ---
HPI - Syncope General Chief Complaint: Dizziness Stated Complaint: dizzy, low bp, low heart rate Time Seen by Provider: 07/06/21 10:40 Source: patient, EMS and RN notes reviewed Mode of arrival: EMS Limitations: no limitations History of Present Illness HPI narrative: This is a 70 year old male who presents for evaluation of syncope. Patient states he woke up this morning and he initally felt fine. He was able to go out to walk his dog and eat breakfast. After eating breakfast, he states he stood up and he felt dizzy. This caused his fall forward and hit his face. He may have loss consciousness. EMS reports patient's blood pressure was low in 80s with HR in 50s so he was given atropine 0.5 mg in route. Patient reports nasal pain and nausea . He denies chest pain, sob, cough, fever, vomiting , diarrhea or melena. HE also denies abdominal pain. Related Data Home Medications Medication Instructions Recorded Confirmed aspirin 81 mg PO BID 09/15/20 07/06/21 atorvastatin 40 mg PO DAILY 09/15/20 07/06/21 carvedilol 12.5 mg PO BID 09/15/20 07/06/21 omeprazole 20 mg PO DAILY 09/15/20 07/06/21 ranolazine 1,000 mg PO BID 09/15/20 07/06/21 lisinopril-hydrochlorothiazide 1 tablet PO DAILY 04/20/21 07/06/21 Allergies Allergy/AdvReac Type Severity Reaction Status Date / Time heparin Allergy Difficulty Verified 07/06/21 10:35 Breathing Review of Systems Review of Systems: All systems reviewed & are unremarkable except as noted in HPI and below PMFSH Past Medical History Medical History Chronic anemia Chronic, mild normocytic anemia. Coronary artery disease Cardiac catheterization in 2018 showed a 50% blockage, per patient report. No intervention undertaken. Gastroesophageal reflux disease Hyperlipidemia Hypertension Pancreatitis (09/2018) Surgical History Surgical History History of arthroscopy of right knee History of cholecystectomy History of colonoscopy with polypectomy History of partial thyroidectomy History of surgical removal of ganglion cyst Left wrist. Family History Family History Father Heart disease Mother Uterine cancer Social History Social History Social History: The patient lives in [place] with his . 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 No alcohol or illicit substance abuse. He designates his , Roula, as his surrogate decision maker. Code status: Full code. Gender identity (if verbalized by the patient): Male Exam Const: General: no acute distress Orientation/consciousness: patient oriented x3 HENMT: Head: normocephalic and atraumatic Ears: TM's normal bilaterally General nose exam: Normal septum present Face and sinus: sinuses nontender and face symmetric Mouth: Yes Normal oral and palatal mucosa present, Yes lip normal, Yes tongue normal and Yes moist mucous membranes Eyes: EOM: EOMs intact bilaterally Resp: Effort & Inspection: normal respiratory effort and no retractions Auscultation: clear to auscultation bilaterally Cardio: Rate: regular rate Rhythm: regular rhythm Heart sounds: no murmurs GI: GI Palp: Yes Soft to palpation, No Tenderness to palpation present (GI) and No Guarding due to palpation present (GI) Auscultation: normal bowel sounds Skin: General skin exam: normal color Rashes: no rashes Neuro: General: patient oriented x3, moves all extremities, no meningeal signs, no focal motor deficits and CN's II-XI intact bilaterally Extrem: General: edema Psych: Mental Status: mental status grossly normal Affect: normal affect Course Reevaluation(s) Reevaluation #1: PAtient is having lower back pain after his fall. CT lumbar was negative for acute fracture. PAtent has been able to ambulate around [employer] [facility] with
[2021-07-06 11:02] LABS: Basophils Percent Auto 0.5 % (0.2-1.2); Eosinophils Percent Auto 0.6 % (0-4.4); Hematocrit 33.7 % (42.0-52.0); Hemoglobin 11.6 g/dL (14.0-18.0); Immature Granulocyte Absolute 0.03 K/mm3 (0.00-0.031); Immature Granulocyte Percent A 0.5 % (0-0.5); Lymphocytes Percent Auto 13.9 % (18.3-44.2); Mean Corpuscular HGB Conc 34.4 g/dl (32-36); Mean Corpuscular Hemoglobin 30.4 pg (26-34); Mean Corpuscular Volume 88.2 fl (80-100); Mean Platelet Volume 9.5 fl (7.4-10.4); Monocytes Absolute Auto 0.4 K/mm3 (0.1-0.6); Monocytes Percent Auto 6.5 % (2.6-8.5); Neutrophils Absolute Auto 5.1 K/mm3 (1.3-6.7); Platelet Count Result 154 k/mm3 (150-375); Red Blood Count 3.82 M/mm3 (4.6-6.20); Red Cell Distribution Width 12.6 % (11.5-14.5); White Blood Count 6.5 K/mm3 (4.5-10.0)
[2021-07-06 11:14] LABS: Alanine Aminotransferase 29 U/L (4-50); Albumin Level 3.4 g/dL (3.5-5.1); Alkaline Phosphatase 67 U/L (38-126); Anion Gap 4 mmol/L (8-16); Aspartate Amino Transferase 39 U/L (17-59); Bilirubin,Total 1.3 mg/dL (0.2-1.3); Blood Urea Nitrogen 16 mg/dL (9-20); Calcium 8.6 mg/dL (8.4-10.2); Carbon Dioxide 30 mmol/L (22-30); Chloride 101 mmol/L (98-107); Estimated CRCL calculation 81 ml/min; Estimated Glomerular Filt Rate 60; Glucose 158 mg/dL (65-110); Lipase 26 U/L (23-300); Magnesium 1.9 mg/dL (1.6-2.3); Potassium 3.5 mmol/L (3.4-5.0); Sodium 135 mmol/L (137-145)
[2021-07-06 11:15] LABS: Prothrombin Time 13.4 Seconds (11.1-14.7)
[2021-07-06 11:16] LABS: Partial Thromboplastin Time 23.4 SECONDS (22.3-36.8)
[2021-07-06 11:25] LABS: Troponin I < 0.012 ng/mL (0.000-0.034)
--- NOTE | 2021-07-06 13:00 | PC.NURSE ---
Pt attempted to ambulate with RN. Reported severe lower back pain, unable to get OOB at this time.
[2021-07-06 13:14] LABS: Add Urine Microscopic? YES; Appearance Urine Clear (Clear); Bilirubin Urine Negative (Negative); Blood Urine Negative (Negative); Color Urine Amber (Yellow); Glucose Urine UA Negative (Negative); Hyaline Casts Urine 20-29 /lpf; Ketones Urine Negative (Negative); Leukocyte Esterase Ur 1+ LEU/UL (Negative); Mucus Urine Rare /lpf; Nitrate Urine Negative (Negative); Protein Urine Negative (Negative); Specific Grav Ur 1.018 (1.001-1.035); Squamous Epithelial Cell Urine Rare /hpf (Few); WBC Urine 16-20 /hpf
--- NOTE | 2021-07-06 13:15 | PC.NURSE ---
MD aware of patient's inability to ambulate. Orders for IV tylenol and CT scan
--- NOTE | 2021-07-06 14:37 | PC.NURSE ---
Pt able to ambulate independently. Intense pain with twisting, positioning. Steady, minimal pain with ambulation. MD aware
== END 2021-07-06 15:41 | disposition home or self-care (01) ==
PROVIDERS: Emergency Provider General Practice; PCP Internal Medicine
DX: R55 Syncope and collapse (principal); S00.33XA Contusion of nose, initial encounter; S39.92XA Unspecified injury of lower back, initial encounter; M46.1 Sacroiliitis, not elsewhere classified; R82.998 Other abnormal findings in urine; I25.10 Atherosclerotic heart disease of native coronary artery without angina pectoris; K21.9 Gastro-esophageal reflux disease without esophagitis; E78.5 Hyperlipidemia, unspecified; I10 Essential (primary) hypertension; D64.9 Anemia, unspecified; E89.0 Postprocedural hypothyroidism; Z86.010 Personal history of colon polyps; R00.1 Bradycardia, unspecified; M47.816 Spondylosis without myelopathy or radiculopathy, lumbar region; W18.39XA Other fall on same level, initial encounter
CPT/HCPCS: 36415; 70450; 70486; 71045; 72131; 80048; 80076; 81001; 83690; 83735; 84484; 85025; 85610; 85730; 87086; 93005; 96374; 99284; J0131

== ENCOUNTER 2022-08-06 07:50 | Outpatient (CLI) | payer MEDICARE, SELFPAY ==
--- NOTE | 2022-09-02 16:39 | WPDSLEEPSTUD ---
Sleep Study Date of Study: 08/06/22 Ordering Provider: Everett Guerrero, Interpreting Physician: Amanda Alba, DO Sleep Study Type: Polysomnogram Height: 1.91 m Weight: 161.479 kg Body Mass Index: 44.4 Neck Circumference (inches): 19.5 [place]: 3 Reason for Sleep Study Snoring, witnessed apneas Sleep History The patient is a 71-year-old male with hypertension, hyperlipidemia, GERD and angina that had a sleep study ordered by his primary care for evaluation of sleep apnea. The patient rarely awakens from sleep short of breath. He denies awakening at night with heartburn, belching or cough. He frequently snores loud enough that others complain. He denies having trouble sleeping when he has a cold. He rarely wakes up gasping for air throughout the night. He rarely has breathing problems at night observed by himself or others. He denies sweating excessively at night. He denies having heart palpitations or irregular heartbeats during the night. He denies falling asleep during the day and while driving. He denies sleep paralysis, cataplexy and hypnagogic / hypnopompic hallucinations. He denies having trouble at school or work due to sleepiness. He denies feeling afraid of going to sleep. He denies having nightmares. He occasionally remembers his dreams. He rarely has thoughts racing through his mind. He denies feeling sad or depressed. He rarely has anxiety. He denies having muscular tension. He denies noticing parts of his body jerk. He denies kicking during the night. He rarely has crawling and aching feelings in his legs and rarely has leg pain during the night. He rarely grinds his teeth during sleep but never awakens with morning jaw pain. He is rarely bothered by pain during the day and rarely awakened by pain during the night. He rarely wakes feeling stiff morning. He rarely wakes up with sore or achy muscles. He rarely wakes up with pain in the neck, spine and other joints. He goes to bed between 11:00 p.m. to 1:00 a.m. on both weekdays and weekends. It takes him 15-20 minutes to fall asleep. He wakes up 2-3 times throughout the night for unknown reasons. He is able to fall back asleep within a few minutes. He wakes up at 5:00 a.m. on weekdays and at 6:00 a.m. on the weekends. He typically gets 5 hours of sleep per night. He will stay in bed for a few minutes after waking up in the morning. He currently lives with his spouse. He does not consume any caffeinated beverages within 2 hours of bedtime. He does not engage in physical exercise before bedtime. He will read and watch television before falling asleep. He does not take naps in the afternoon or the evening. He drinks 2 caffeinated beverages per day. He will drink 1-2 alcoholic beverages per day. He denies tobacco and recreational drug use. [facility] Past Medical History Medical History Chronic anemia Chronic, mild normocytic anemia. Coronary artery disease Cardiac catheterization in 2018 showed a 50% blockage, per patient report. No intervention undertaken. Gastroesophageal reflux disease Hyperlipidemia Hypertension Pancreatitis (09/2018) Surgical History Surgical History History of arthroscopy of right knee History of cholecystectomy History of colonoscopy with polypectomy History of partial thyroidectomy History of surgical removal of ganglion cyst Left wrist. Family History Family History Father Heart disease Mother Uterine cancer Social History Social History Social History: The patient lives in [place] with his . 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 No alcohol or illicit substance abuse. He designates his , Roula, as his surrogate decision maker. Code status: Full code. Gen
[2022-09-02 17:05] VITALS: BMI 44.4
== END 2022-08-07 05:31 | disposition home or self-care (01) ==
PROVIDERS: PCP Internal Medicine; Visit Provider Internal Medicine
DX: G47.33 Obstructive sleep apnea (adult) (pediatric) (principal); R40.0 Somnolence
CPT/HCPCS: 95810

== ENCOUNTER 2022-09-29 22:31 | Observation (INO) | payer MEDICARE, SELFPAY ==
--- NOTE | ~2022-09-29 | XR_ITS ---
EXAMINATION: XR chest 1V portable Exam Date/Time: 09/29/2022 22:50 HOTEL SERVICES SALES REPRESENTATIVE HISTORY: MEDIAL CHEST PAIN, EXPOSED TO FLU Comparison: 07/06/2021. RESULT: Lines, tubes, and devices: None. Lungs and pleura: Clear. Cardiomediastinal silhouette: Stable. Other: No acute osseous or upper abdominal finding. IMPRESSION: No acute cardiopulmonary process. Reviewed, dictated and finalized at location K. L SERVICES SALES REPRESENTATIVE
--- NOTE | ~2022-09-29 | NM_ITS ---
EXAMINATION: NM aggie stress w perfusion DATE: 09/30/2022 12:03 INDICATION: Chest pain TECHNIQUE: Rest images were obtained following intravenous administration of 10.1 mCi Tc99m tetrofosm in (Myoview). The patient was infused intravenously with Lexiscan (Regadenoson). Then, 30.0 mCi Tc99m tetrofosmin (Myoview) was administered intravenously, and stress images were obtained. Data was soraya nstructed into short axis and horizontal and vertical long axis SPECT images. Gated SPECT images were also obtained. COMPARISON: None. FINDINGS: There is no perfusion abnormality on the post stress images to suggest ischemia or infarcti on. There is normal left ventricular chamber size, wall motion and ejection fraction. Left ventricu lar ejection fraction measures 68%. IMPRESSION: 1. Normal myocardial perfusion at rest and during stress. 2. Left ventricular ejection fraction measuring 68%. Reviewed, dictated and finalized at location A. AND PENCILS DIPPER
--- NOTE | 2022-09-29 22:33 | ECG_ITS ---
Measurements Intervals [place] Rate: 97 P: 61 [place]: 186 QRS: 37 QRSD: 92 T: 40 QT: 377 QTc: 481 Interpretive Statements SINUS RHYTHM INCOMPLETE RIGHT BUNDLE BRANCH BLOCK BORDERLINE ECG COMPARED TO ECG 07/06/2021 10:33:14 SINUS RHYTHM NOW PRESENT Electronically Signed On 09-30-2022 6:15:02 INSURANCE SALES AGENT by Kapil Mirza D.O.
[2022-09-29 22:35] VITALS: BP 151/76; PULSE 102; RESP 14; TEMP 37.6; O2SAT 96
[2022-09-29 22:43] VITALS: PULSE 100; O2SAT 69
[2022-09-29 23:03] LABS: Basophils Percent Auto 0.3 % (0.2-1.2); Eosinophils Percent Auto 0.4 % (0-4.4); Hemoglobin 12.5 g/dL (14.0-18.0); Immature Granulocyte Absolute 0.05 K/mm3 (0.00-0.031); Immature Granulocyte Percent A 0.5 % (0-0.5); Lymphocytes Absolute Auto 0.33 K/mm3 (0.9-3.2); Lymphocytes Percent Auto 3.1 % (18.3-44.2); Mean Corpuscular HGB Conc 35.7 g/dl (32-36); Mean Corpuscular Hemoglobin 30.4 pg (26-34); Mean Corpuscular Volume 85.2 fl (80-100); Mean Platelet Volume 9.3 fl (7.4-10.4); Monocytes Absolute Auto 0.5 K/mm3 (0.1-0.6); Monocytes Percent Auto 4.9 % (2.6-8.5); Neutrophils Absolute Auto 9.7 K/mm3 (1.3-6.7); Neutrophils Percent Auto 90.8 % (45.5-73.1); Platelet Count Result 154 k/mm3 (150-375); Red Blood Count 4.11 M/mm3 (4.6-6.20); Red Cell Distribution Width 13.2 % (11.5-14.5); White Blood Count 10.6 K/mm3 (4.5-10.0)
--- NOTE | 2022-09-29 23:09 | PC.NURSE ---
Patient report given to ALFRED Powell. All questions answered and care of patient transferred. Patient resting quietly in stretcher with call-light within reach and family present at bedside. Currently rating chest pressure at 2/10. Labs sent and EKG completed. VSS.
[2022-09-29 23:15] LABS: Alanine Aminotransferase 21 U/L (6-50); Albumin Level 3.8 g/dL (3.5-5.1); Alkaline Phosphatase 90 U/L (38-126); Anion Gap 9 mmol/L (8-16); Aspartate Amino Transferase 18 U/L (17-59); Bilirubin,Total 1.4 mg/dL (0.2-1.3); Blood Urea Nitrogen 12 mg/dL (9-20); Calcium 8.6 mg/dL (8.4-10.2); Carbon Dioxide 27 mmol/L (22-30); Chloride 101 mmol/L (98-107); Estimated CRCL calculation 108 ml/min; Estimated Glomerular Filt Rate > 60; Glucose 169 mg/dL (65-110); INR 1.1; Lipase 115 U/L (23-300); Partial Thromboplastin Time 23.8 SECONDS (22.3-36.8); Potassium 2.9 mmol/L (3.4-5.0); Prothrombin Time 13.9 Seconds (11.1-14.7); Sodium 137 mmol/L (137-145)
[2022-09-29 23:26] LABS: Troponin I < 0.012 ng/mL (0.000-0.034)
[2022-09-29 23:43] LABS: Influenza A QL RT-PCR Negative (Negative); Influenza B QL RT-PCR Negative (Negative); RSV RNA, RT-PCR Negative (Negative); SARS-CoV-2 RNA PCR Negative
[2022-09-30] VITALS (8 sets, daily range): BP systolic 104–187; BP diastolic 55–75; PULSE 81–99; RESP 12–22; TEMP 36.3–36.6; O2SAT 96–100; BMI 38.0
--- NOTE | 2022-09-30 00:23 | ED.CHESTPAIN ---
HPI - Chest Pain General Chief Complaint: Chest Pain Stated Complaint: chest pain Time Seen by Provider: 09/29/22 22:45 History of Present Illness HPI narrative: Patient with history of CAD presents here with severe chest pressure that started while he was in bed prior to arrival, he had diaphoresis, nausea and vomiting, and difficulty breathing, he couldn't move but his was able to grab his aspirin and nitro and give it to him and he had some relief of symptoms. he also having some dry heaves while calling EMS but he was feeling better at this time they arrived. Did have recent fevers and sick contact with flu. Had a negative cardiac cath years ago. Related Data Home Medications Medication Instructions Recorded Confirmed aspirin 81 mg tablet,delayed 81 mg PO BID 09/15/20 07/06/21 release atorvastatin 40 mg tablet 40 mg PO DAILY 09/15/20 07/06/21 carvedilol 12.5 mg tablet 12.5 mg PO BID 09/15/20 07/06/21 omeprazole 20 mg capsule,delayed 20 mg PO DAILY 09/15/20 07/06/21 release ranolazine 1,000 mg 1,000 mg PO BID 09/15/20 07/06/21 tablet,extended release,12 hr lisinopril 20 1 tablet PO DAILY 04/20/21 07/06/21 mg-hydrochlorothiazide 25 mg tablet Allergies Allergy/AdvReac Type Severity Reaction Status Date / Time heparin Allergy Difficulty Verified 07/06/21 10:35 Breathing Review of Systems Review of Systems: CONST: Chills HEENT: No sore throat C/V: chest pain RESP: Difficulty breathing GI: Nausea : No dysuria. M/S: No joint pain. SKIN: No rash. NEURO: [No headache or focal numbness or weakness] PSYCH: [No depression] [facility] Past Medical History Medical History Chronic anemia Chronic, mild normocytic anemia. Coronary artery disease Cardiac catheterization in 2018 showed a 50% blockage, per patient report. No intervention undertaken. Gastroesophageal reflux disease Hyperlipidemia Hypertension Pancreatitis (09/2018) Surgical History Surgical History History of arthroscopy of right knee History of cholecystectomy History of colonoscopy with polypectomy History of partial thyroidectomy History of surgical removal of ganglion cyst Left wrist. Family History Family History Father Heart disease Mother Uterine cancer Social History Social History Social History: The patient lives in [place] with his . 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 No alcohol or illicit substance abuse. He designates his , Roula, as his surrogate decision maker. Code status: Full code. Gender identity (if verbalized by the patient): Male Exam Narrative: EXAMINATION OF ORGAN SYSTEMS/BODY AREAS: Constitutional: Vital signs per nursing GENERAL: Appears slightly uncomfortable HEAD: Normal with no signs of head trauma. EYES: EOMI, conjunctiva normal ENT: Hearing grossly intact LUNGS: Nonlabored breathing. HEART: [Regular rate and rhythm] ABD: [Soft], [nontender to palpation] EXT: Normal range of motion SKIN: [No rashes or lesions.] NEURO: [Alert and oriented x 3. No gross focal sensory or strength deficits.] PSYCH: Normal affect Course Vital Signs Vital signs: Vital Signs Temperature 99.6 F 09/29/22 22:35 Pulse Rate 102 H 09/29/22 22:35 Respiratory Rate 14 09/29/22 22:35 Blood Pressure 151/76 H 09/29/22 22:35 Pulse Oximetry 96 09/29/22 22:35 Oxygen Delivery Room Air 09/29/22 22:35 Temperature 99.6 F 09/29/22 22:35 Pulse Rate 100 09/29/22 22:43 Respiratory Rate 14 09/29/22 22:35 Blood Pressure 151/76 H 09/29/22 22:35 Pulse Oximetry 69 L 09/29/22 22:43 Oxygen Delivery Room Air 09/29/22 22:43 MDM - Chest Pain MDM Narrative Medical decision making narrative: ED COURSE AND MEDICAL DECISION MAKIN-year-old male presenti
[2022-09-30] MEDS: POTASSIUM CHLORIDE INJ 40 MEQ in SODIUM CHLORIDE 0.9% IV 500 ML 130 MEQ IVPB ×2 (00:36→01:35)
--- NOTE | 2022-09-30 01:30 | PC.NURSE ---
Per DR Toan fregoso to hang 2nd bag of Potassium 40meq IV piggyback.
--- NOTE | 2022-09-30 02:14 | PM.IMHP ---
H&P: HPI History of Present Illness Date/Time: 09/30/22 02:14 Chief Complaint: Chest pain Narrative: 72-year-old male with past medical history of coronary artery disease least, hypertension, hyperlipidemia and GERD who presented to the ER via EMS with chest pain. The patient's reportedly had a cardiac catheterization 2018 demonstrated 50% blockage of an unspecified vessel. He reports that after his hospitalization in April of 2021 that he followed up with his boat wrapper and had a heart catheterization at that time. Heart catheterization at that time demonstrated stable disease of his known vessel with coronary artery disease. However he had new peripheral vascular disease and had a stent placed in his left lower extremity. He is still having some symptoms of claudication especially since his Ranexa was discontinued 6 months ago. He reports that he usually has to uses nitro glycerin tablets once or twice every couple of months. However earlier today while he was at work he began to feel ill. He had generalized fatigue and body aches. His grandson was just diagnosed with influenza within the last 3 or 4 days. He assumed that he likely had the flu. He went home and his checked his temperature which was around 100.3?. He took 2 doses of Tylenol and had a temperature of 99.6 in the ER. He has not been having any nasal congestion, cough, congestion, shortness of breath, sore throat or other signs of illness. He denies any dysuria, hematuria or changes in bowel habits. He generally just did not feel well so he went to lay down. Right before he could fall asleep he had a sharp stabbing chest pain just to left of his sternum. This only lasted a few minutes but was then followed by central chest pressure that was a 5/10 in intensity. He took 2 sublingual nitroglycerin (which he recently had filled) which helped with his chest discomfort. His chest pain when he arrived to the ER with a 2/10 in intensity. The chest pressure was almost immediately accompanied by diaphoresis, nausea and dry heaves. He has a had associated cold sweats. He subsequently called EMS to bring him in. The chest pressure was nonradiating. His nausea vomiting has since resolved. He reports that he has chronic lower extremity swelling right is always swollen more than left due to history of thrombophlebitis over 20 years ago. He reports that he has been taking all of his medications as directed. He recently started on Tamiflu since his grandson was diagnosed with the flu 4 days ago. He just had his Tamiflu prescription filled and took his 1st dose prior to the onset of his symptoms. He reports that his boat wrapper is with [facility]. His last cardiac catheterization was at [facility]. The patient does admit that he has had multiple social factors increasing his stress recently. 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 His daughter also recently moved to this again and he has been packing up her apartment. The patient has a history of witnessed apneas and had a sleep study July 2022 that demonstrated mild obstructive sleep apnea. The patient states that he was told that his study did not show any significant events in that he was told he did not need a CPAP. However reading the report the study actually suggested the patient be prescribed an auto PAP with pressures 5 to 15 cm of water. In the ER patient's EKG was unchanged from baseline. His potassium was low he received 40 mEq of IV potassium. The 2nd order of IV potassium was discontinued and I ordered p.o. potassium. However nursing staff did not administer the p.o. potassium as they did not feel comfortable doing so into the patient had a repeat BMP at 06:00. Review of Systems Review of Systems: 12 systems were reviewed with pertinent positives and negatives per HPI. Except
[2022-09-30 02:30] LABS: Troponin I < 0.012 ng/mL (0.000-0.034)
--- NOTE | 2022-09-30 03:34 | ADMGEN ---
This patient, Alber Romero, was admitted to IMU Room 214-01. Patient/family oriented to hospital policies and general routines including ID bracelet, bed and alarms, visiting hours, pain management, procedures, bathroom and other care routines, personal items, smoking policy, room service/diet, and visiting hours. Information on how to activate the Rapid Response Team has been discussed. Patient/Family are encouraged to report perceived risks to care and to ask questions if they do not understand what they are told or what they should do.
[2022-09-30 04:50] LABS: Troponin I < 0.012 ng/mL (0.000-0.034)
[2022-09-30 06:58] LABS: Anion Gap 8 mmol/L (8-16); Blood Urea Nitrogen 13 mg/dL (9-20); Carbon Dioxide 26 mmol/L (22-30); Chloride 105 mmol/L (98-107); Estimated CRCL calculation 103 ml/min; Estimated Glomerular Filt Rate > 60; Glucose 124 mg/dL (65-110); Magnesium 1.6 mg/dL (1.6-2.3); Potassium 3.3 mmol/L (3.4-5.0); Sodium 139 mmol/L (137-145)
[2022-09-30] MEDS: MAGNESIUM SULF 2 GM/WATER 50ML 2 GM/50 ML BAG IVPB (08:05)
[2022-09-30] MEDS: OSELTAMIVIR PHOSPHATE 75 MG CAPSULE PO (08:06)
[2022-09-30] MEDS: PANTOPRAZOLE 40 MG TABLET PO (08:06)
[2022-09-30] MEDS: ATORVASTATIN 40 MG TABLET PO (08:06)
[2022-09-30] MEDS: LOSARTAN POTASSIUM 100 MG TABLET PO (08:06)
[2022-09-30] MEDS: ASPIRIN 81 MG ENTERIC TABLET PO (08:06)
--- NOTE | 2022-09-30 09:04 | EST_ITS ---
Patient Info Name: Alber Romero Age: 72 years : 1950 Gender: Male Ht: 76 in Wt: 311 lbs BSA: 2.80 m2 Exam Date: 09/30/2022 11:13 AM Exam Location: [facility] Stress Patient Status: Outpatient Admit Date: 09/30/2022 Staff Ordering Physician: Angelica Trujillo MD Attending Provider: Antonia Flores DO Exercise Technologist: Layne Bowen RDCS Exercise Physician: Angelica Trujillo MD Exam Type: CA stress aggie w NM Study Info Indications R07.9 - Chest pain, unspecified A regadenoson stress test was performed. Summary 1. Please correlate with nuclear medicine images, reported separately. 2. No abnormal ST-T wave changes with lexiscan. 3. Occasional PVCs. Protocol: Lexiscan Stress ECG Details Stage: REST Duration (min): 2 min : 12 sec HR (bpm): 89 SBP (mmHg): 184 DBP (mmHg): 75 Stage: REST Duration (min): 10 min : 19 sec HR (bpm): 86 SBP (mmHg): 184 DBP (mmHg): 75 Stage: STAGE 1 Duration (min): 0 min : 59 sec HR (bpm): 100 SBP (mmHg): 187 DBP (mmHg): 66 Stage: RECOVERY Duration (min): 1 min : 0 sec HR (bpm): 104 SBP (mmHg): 187 DBP (mmHg): 66 Stage: RECOVERY Duration (min): 2 min : 0 sec HR (bpm): 100 SBP (mmHg): 182 DBP (mmHg): 70 Stage: RECOVERY Duration (min): 3 min : 0 sec HR (bpm): 99 SBP (mmHg): 186 DBP (mmHg): 68 Stage: RECOVERY Duration (min): 3 min : 34 sec HR (bpm): 99 SBP (mmHg): 186 DBP (mmHg): 68 Rest HR: 86 bpm Peak HR: 105 bpm Rest Sys BP: 184 mmHg Peak Sys BP: 187 mmHg Max Pred HR: 150 bpm % Max Pred HR: 70 % Target HR: 128 bpm Max RPP: 19,635 bpm*mmHg Total Time: 1 min : 0 sec Rest Dong BP: 75 mmHg Peak Dong BP: 66 mmHg Total Dose: 0.4 mg Resting ECG Sinus rhythm. Incomplete right bundle branch block. Premature ventricular contraction. Stress ECG Sinus tachycardia. No abnormal ST/T wave changes with Lexiscan. Arrhythmias Occasional PVCs. Report Signatures
--- NOTE | 2022-09-30 09:48 | PM.CNCAR ---
Assessment and Plan Assessment and plan (1) Chest pain: Qualifiers: Chest pain type: chest pain due to myocardial ischemia Ischemic chest pain type: unstable angina pectoris Qualified Code(s): I20.0 - Unstable angina Code(s): R07.9 - Chest pain, unspecified Status: Acute (2) Coronary artery disease: Qualifiers: Coronary Disease-Associated Artery/Lesion type: unspecified vessel or lesion type [place] vs. transplanted heart: [place] heart Associated angina: without angina Qualified Code(s): I25.10 - Atherosclerotic heart disease of [place] coronary artery without angina pectoris Code(s): I25.10 - Atherosclerotic heart disease of [place] coronary artery without angina pectoris Status: Chronic Plan Continue ASA and statin. Obtain lexiscan stress test. If stress test normal, patient can be discharged without further inpatient cardiac workup. History of Present Illness History of Present Illness Consult date/time: 09/30/22 09:48 Requesting physician: Antonia Flores DO Consult reason: chest pain Reason For Visit: unstable angina Narrative: Patient is a 72-year-old male who we are being consulted for chest pain. He follows with [facility] for his cardiac care. He has a history of CAD, hypertension, hyperlipidemia, and GERD who presented with chest pain. Patient reports flu-like symptoms yesterday. His grandson had been diagnosed with the flu about 3-4 days ago. Patient states last night when sleeping, he developed acute substernal chest pain that felt like sharp and stabbing that lasted for a few seconds, but then felt pressure-like chest pain that lasted for a while. Patient states that his chest pain is gone for the most part. Got NTG in the ED yesterday which patient reports improvement with. Chest pain is not associated with breathing. Chest pain does feel worse when he changes body positions. Troponins are negative x 3. EKG without ischemic changes. Review of Systems Review of Systems: 12-point ROS obtained. Negative, unless stated in HPI. [facility] Past Medical History Medical History Chronic anemia Chronic, mild normocytic anemia. Coronary artery disease Cardiac catheterization in 2017 showed a 50% blockage, per patient report. No intervention undertaken. Gastroesophageal reflux disease Hyperlipidemia Hypertension THERESA (obstructive sleep apnea) Polysomnogram July 2022: Demonstrated mild obstructive sleep apnea recommended auto PAP 5-15 cm of water Pancreatitis (09/2018) Peripheral arterial disease with history of revascularization Left leg Surgical History Surgical History History of arthroscopy of right knee History of cardiac catheterization 2017 and May 2021 History of cholecystectomy History of colonoscopy with polypectomy History of partial thyroidectomy History of surgical removal of ganglion cyst Left wrist. Family History Family History Father Heart disease Mother Uterine cancer Sibling Hypertension Social History Social History Social History: The patient lives in [place] with his . 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 No alcohol or illicit substance abuse. He designates his , Roula, as his surrogate decision maker. Code status: Full code. Smoking status: Never smoker Alcohol intake: current Drinks per week: 1 Substance use: never Lack of Transportation: No Lack of Food: Never True Current Housing: I Have Housing Concerned About Future Housing: No Difficulty Paying Gas/Electric Bills: No Difficulty Paying for Meds: No Currently Unemployed: No Education: Trade/Vocational Certificate Difficulty w/ Childcare or Family Care: No Gender identity (if verbalized by t
[2022-09-30] MEDS: traMADol HCL (*CRX) 25 MG TABLET PO (11:05)
--- NOTE | 2022-09-30 14:52 | PM.DS ---
DS: Admitting Diagnosis Discharge Date 09/30/22 Admitting Diagnosis Chest pain DS: Discharge Diagnosis Discharge Diagnosis (1) Chest pain: Qualifiers: Chest pain type: chest pain due to myocardial ischemia Ischemic chest pain type: unstable angina pectoris Qualified Code(s): I20.0 - Unstable angina Code(s): R07.9 - Chest pain, unspecified Status: Acute (2) THERESA (obstructive sleep apnea): Code(s): G47.33 - Obstructive sleep apnea (adult) (pediatric) Status: Acute (3) Exposure to influenza: Code(s): Z20.828 - Contact with and (suspected) exposure to other viral communicable diseases Status: Acute (4) Coronary artery disease: Qualifiers: Coronary Disease-Associated Artery/Lesion type: unspecified vessel or lesion type [place] vs. transplanted heart: [place] heart Associated angina: without angina Qualified Code(s): I25.10 - Atherosclerotic heart disease of [place] coronary artery without angina pectoris Code(s): I25.10 - Atherosclerotic heart disease of [place] coronary artery without angina pectoris Status: Chronic (5) Hypertension: Qualifiers: Hypertension type: unspecified Qualified Code(s): I10 - Essential (primary) hypertension Code(s): I10 - Essential (primary) hypertension Status: Chronic DS: Summary Hospital Course Reason for hospitalization: 72yo male with CAD here for chest pain. Please see H&P for details Hospital Course: Patient presents with chest pain associated with diaphoresis, nausea, dry heaves and shortness of breath. He did have a left heart catheterization in April 2021 which showed stable coronary disease. Patient was recently started on Tamiflu due to influenza exposure. Potassium is low at 2.9 and this was replaced. Total bili was 1.4 but this is not uncommon for this patient. Troponin was negative x3. Influenza, RSV and COVID swabs were negative here. Despite that we did continue him on his Tamiflu. EKG showed incomplete right bundle branch block but overall no change from prior EKG findings. Chest x-ray is clear. Was seen by Cardiology. He underwent a Lexiscan stress test which showed no abnormal ST-T wave changes. Nuclear images showed no perfusion abnormalities in the post-stress images to suggest ischemia or infarction. He had normal LV chamber size, wall motion and EF of 68%. Patient had clinical improvement. No recurrent to the chest pain. He overall did well was able to be discharged home on 09/30/2022. Status at Discharge Cognitive/behavioral status at discharge: stable Time Spent with Patient Time attestation: Total time spent providing and/or coordinating discharge services: 32 minutes Exam Narrative: AF 97.3 187/75 81 21 99% ra Gen - NARD Chest - CTA bilaterally, nml RR CV - RRR S1/S2. tele showing PVCs Abd - Soft, NT/ND, Positive BS Ext - No pedal edema Psych - Nml mood and affect Skin - Warm and dry DS: Data Data Completed and Pending Labs on day of discharge: Labs from last 24 hours 09/30/22 09/30/22 09/30/22 06:29 04:11 01:57 WBC RBC Hgb Hct MCV MCH MCHC RDW Plt Count MPV Immature Gran % (Auto) Neut % (Auto) Lymph % (Auto) [place] % (Auto) Eos % (Auto) Baso % (Auto) Lymph # (Auto) [place] # (Auto) Eos # (Auto) Baso # (Auto) Abs Immat Gran (auto) Absolute Neuts (auto) Absolute Nucleated RBC Nucleated RBC % PT INR APTT Sodium 139 Potassium 3.3 L Chloride 105 Carbon Dioxide 26 Anion Gap 8 BUN 13 Creatinine 0.90 Estim Creat Clear Calc 103 Estimated GFR > 60 Glucose 124 H Calcium 8.0 L Magnesium 1.6 Total Bilirubin AST ALT Alkaline Phosphatase Troponin I < 0.012 < 0.012 Total Protein Albumin Lipase Influenza A (RT-PCR) Influenza B (RT-PCR) RSV (RT-PCR) SARS-CoV-2 R
== END 2022-09-30 15:39 | disposition home or self-care (01) ==
LOC: ANHED 09-30 01:00 → ANHIMU 09-30 04:16
PROVIDERS: Admitting Provider Internal Medicine; Emergency Provider Emergency Medicine; PCP Internal Medicine; Visit Provider Internal Medicine
DX: I25.110 Atherosclerotic heart disease of native coronary artery with unstable angina pectoris (principal); I10 Essential (primary) hypertension; I25.10 Atherosclerotic heart disease of native coronary artery without angina pectoris; R61 Generalized hyperhidrosis; R06.00 Dyspnea, unspecified; D64.9 Anemia, unspecified; K21.9 Gastro-esophageal reflux disease without esophagitis; E78.5 Hyperlipidemia, unspecified; E87.6 Hypokalemia; G47.33 Obstructive sleep apnea (adult) (pediatric); I45.10 Unspecified right bundle-branch block; I49.3 Ventricular premature depolarization; I73.9 Peripheral vascular disease, unspecified; F10.90 Alcohol use, unspecified, uncomplicated; Z82.49 Family history of ischemic heart disease and other diseases of the circulatory system; Z20.822 Contact with and (suspected) exposure to COVID-19; Z20.828 Contact with and (suspected) exposure to other viral communicable diseases; Z79.82 Long term (current) use of aspirin; Z79.899 Other long term (current) drug therapy
CPT/HCPCS: 36415; 71045; 78452; 80048; 80053; 83690; 83735; 84484; 85025; 85610; 85730; 87637; 93005; 93017; 96365; 96366; 96375; 99285; A9270; A9502; G0378; J2785; J3475; J7040

== ENCOUNTER 2022-10-18 13:58 | Emergency (ER) | payer MEDICARE, SELFPAY ==
--- NOTE | ~2022-10-18 | XR_ITS ---
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 RESULT: Lines, tubes, and devices: None. Lungs and pleura: Clear. Cardiomediastinal silhouette: Stable. Other: No acute osseous or upper abdominal finding. IMPRESSION: No acute cardiopulmonary process. Reviewed, dictated and finalized at location K. FIELD OPERATOR
[2022-10-18 15:04] VITALS: BP 191/83; PULSE 110; RESP 16; TEMP 37.6; O2SAT 99
--- NOTE | 2022-10-18 16:08 | ED.SOB ---
HPI - SOB/Dyspnea General Chief Complaint: Shortness of Breath/Dyspnea Stated Complaint: SOB/COUGH/ELEVATED PLUSE RATE Time Seen by Provider: 10/18/22 16:08 Source: patient Mode of arrival: ambulatory Limitations: no limitations History of Present Illness HPI Narrative: 72 y/o male with history of CAD, HTN, HLD presented for c/o cough, sore throat, chills, and elevated heart rate for 2 days. Endorses checking his blood pressure regularly and documented a heart rate of 110, blood pressure of 180/90. He has been taking Mucinex and Coricidin which he states makes his heart race. He endorses shortness of breath with exertion especially stairs. He denies nausea, vomiting, diarrhea, fever chills. Denies sick contacts. Related Data Home Medications Medication Instructions Recorded Confirmed aspirin 81 mg tablet,delayed 81 mg PO DAILY 09/15/20 10/18/22 release atorvastatin 40 mg tablet 40 mg PO DAILY 09/15/20 10/18/22 omeprazole 20 mg capsule,delayed 20 mg PO DAILY 09/15/20 10/18/22 release losartan 100 mg tablet 100 mg PO DAILY 09/30/22 10/18/22 Allergies Allergy/AdvReac Type Severity Reaction Status Date / Time heparin Allergy Difficulty Verified 10/18/22 16:08 Breathing Review of Systems Review of Systems: CONSTITUTIONAL: Denies body aches, fever, or sweats. EYES: Denies visual changes, redness, or discharge. ENT: Denies rhinorrhea, congestion, or otalgia. CARDIOVASCULAR: Denies chest pain, palpitations, or edema. RESPIRATORY: Reports cough, sob GASTROINTESTINAL: Denies abdominal pain, nausea, vomiting, or diarrhea. SKIN: Denies rash, itching, or wounds. MUSCULOSKELETAL: Denies back pain, joint pain, or myalgia. NEUROLOGIC: Denies headache, numbness, tingling, or weakness. All systems reviewed & are unremarkable except as noted in HPI and below PMFSH Past Medical History Medical History Chronic anemia Chronic, mild normocytic anemia. Coronary artery disease Cardiac catheterization in 2017 showed a 50% blockage, per patient report. No intervention undertaken. Gastroesophageal reflux disease Hyperlipidemia Hypertension THERESA (obstructive sleep apnea) Polysomnogram July 2022: Demonstrated mild obstructive sleep apnea recommended auto PAP 5-15 cm of water Pancreatitis (09/2018) Peripheral arterial disease with history of revascularization Left leg Surgical History Surgical History History of arthroscopy of right knee History of cardiac catheterization 2017 and May 2021 History of cholecystectomy History of colonoscopy with polypectomy History of partial thyroidectomy History of surgical removal of ganglion cyst Left wrist. Family History Family History Father Heart disease Mother Uterine cancer Sibling Hypertension Social History Social History Social History: The patient lives in [place] with his . 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 No alcohol or illicit substance abuse. He designates his , Roula, as his surrogate decision maker. Code status: Full code. Smoking status: Never smoker Alcohol intake: current Drinks per week: 1 Substance use: never Lack of Transportation: No Lack of Food: Never True Current Housing: I Have Housing Concerned About Future Housing: No Difficulty Paying Gas/Electric Bills: No Difficulty Paying for Meds: No Currently Unemployed: No Education: Trade/Vocational Certificate Difficulty w/ Childcare or Family Care: No Gender identity (if verbalized by the patient): Male Spiritual care concerns: No Comments At time of signature, I have reviewed and agree with nursing past medical, surgical, social and family history unless otherwise noted. Please see nursing chart for further i
[2022-10-18 17:00] VITALS: PULSE 110; RESP 19; O2SAT 96
[2022-10-18 17:45] VITALS: BP 189/92; PULSE 102; RESP 19; O2SAT 97
[2022-10-18] MEDS: IPRATROPIUM BR 0.02% INH SOLN 0.5 MG/2.5 ML VIAL INHALATION (17:59)
[2022-10-18] MEDS: methylPREDNISolone ACETATE 80 MG/ML VIAL IM (17:59)
[2022-10-18] MEDS: ALBUTEROL SULFATE NEB 2.5 MG/3 ML INH INHALATION (17:59)
[2022-10-18 18:25] VITALS: PULSE 99; RESP 18; O2SAT 98
== END 2022-10-18 18:33 | disposition home or self-care (01) ==
PROVIDERS: Emergency Provider Nurse Practitioner Family; PCP Internal Medicine
DX: J10.1 Influenza due to other identified influenza virus with other respiratory manifestations (principal); Z20.822 Contact with and (suspected) exposure to COVID-19; I25.10 Atherosclerotic heart disease of native coronary artery without angina pectoris; K21.9 Gastro-esophageal reflux disease without esophagitis; E78.5 Hyperlipidemia, unspecified; I10 Essential (primary) hypertension; G47.33 Obstructive sleep apnea (adult) (pediatric); I73.9 Peripheral vascular disease, unspecified
CPT/HCPCS: 71046; 87426; 87804; 94640; 96372; 99213; C9803; G0463; J1040

== ENCOUNTER 2022-12-16 16:21 | Emergency (ER) | payer MEDICARE, SELFPAY ==
--- NOTE | ~2022-12-16 | XR_ITS ---
EXAMINATION: XR ankle RT min 3V DATE: 12/16/2022 20:57 INDICATION: Right ankle pain and swelling TECHNIQUE: Anteroposterior, oblique, mortise, and lateral views of the right ankle were obtained. COMPARISON: None. FINDINGS: Alignment is normal. No fracture. Mild osteoarthritis at a few of the tarsal metatarsal joints. Achi lles and plantar calcaneal spurs. No ankle joint effusion. Soft tissue swelling about the ankle and distal calf. Multiple dystrophic calcification in the subcutaneous tissues most prominent medially wh ich can be seen in the setting of chronic venous stasis. IMPRESSION: 1. Mild degenerative skeletal changes in the right foot. No acute osseous abnormality. Reviewed, dictated and finalized at location A. GER BOOKS IMPRESSION: 1. Mild degenerative skeletal changes in the right foot. No acute osseous abnor mality.
--- NOTE | ~2022-12-16 | US_ITS ---
EXAMINATION: US venous doppler LE RT DATE: 12/16/2022 17:17 INDICATION: Right lower limb erythema and swelling TECHNIQUE: Grayscale ultrasound images without and with compression and Doppler ultrasound images of the right lower extremity veins were obtained. COMPARISON: None. FINDINGS: The visualized portions of right common femoral vein, profunda (deep) femoral vein, femoral vein, pop liteal vein, peroneal trunk, posterior tibial veins, peroneal veins, gastrocnemius vein and greater s aphenous vein outflow are patent. Prominent subcutaneous edema at the right calf. IMPRESSION: 1. No deep venous thrombosis in the right lower limb. Reviewed, dictated and finalized at location A. 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
[2022-12-16 16:37] VITALS: BP 192/89; PULSE 106; RESP 20; TEMP 36.4; O2SAT 100
--- NOTE | 2022-12-16 20:41 | ED.GENADULT ---
HPI - General Adult General Chief complaint: Extremity Injury, Lower <JUAN RAMON Barnard Last Filed: 12/16/22 23:04> Stated complaint: right leg pain <JUAN RAMON Barnard Last Filed: 12/16/22 23:04> Time Seen by Provider: 12/16/22 20:26 <JUAN RAMON Barnard Last Filed: 12/16/22 23:04> History of Present Illness HPI narrative: Patient is a 72-year-old male here for evaluation of right lower extremity pain and swelling for the past day. 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 When he got home he noticed that his bilateral lower extremities were swollen but the right lower extremity was red and painful. The pain is concentrated around the calf. He does have a history of DVT in the right lower extremity. He denies any known injury to his right lower extremity when he was walking today but is also having some ankle and knee pain. Has not taken any medicine for his pain yet. No fevers or chills, nausea or vomiting, chest pain or shortness of breath. <JUAN RAMON Barnard Last Filed: 12/16/22 23:04> Related Data Home medications: Home Medications Medication Instructions Recorded Confirmed aspirin 81 mg tablet,delayed 81 mg PO DAILY 09/15/20 10/18/22 release atorvastatin 40 mg tablet 40 mg PO DAILY 09/15/20 10/18/22 omeprazole 20 mg capsule,delayed 20 mg PO DAILY 09/15/20 10/18/22 release losartan 100 mg tablet 100 mg PO DAILY 09/30/22 10/18/22 <JUAN RAMON Barnard Last Filed: 12/16/22 23:04> Allergies/adverse reactions: Allergies Allergy/AdvReac Type Severity Reaction Status Date / Time heparin Allergy Difficulty Verified 10/18/22 16:08 Breathing <JUAN RAMON Barnard Last Filed: 12/16/22 23:04> Review of Systems Review of Systems: Gen: Denies fevers or chills Eyes: Denies eye pain or visual change ENT: Denies congestion Respiratory: Denies shortness of breath or cough CV: Denies chest pain or palpitations GI: Denies abdominal pain nausea, emesis or diarrhea denies burning, urgency, frequency or hematuria Musculoskeletal: Reports pain to the right calf. Neuro: Denies numbness, tingling, weakness or focal weakness Skin: Reports redness and swelling to the right lower extremity Except as documented, all other systems reviewed and negative <Santa Verdugo PA-C - Last Filed: 12/16/22 23:04> [facility] Past Medical History Medical History: Medical History Chronic anemia Chronic, mild normocytic anemia. Coronary artery disease Cardiac catheterization in 2018 showed a 50% blockage, per patient report. No intervention undertaken. Gastroesophageal reflux disease Hyperlipidemia Hypertension THERESA (obstructive sleep apnea) Polysomnogram July 2022: Demonstrated mild obstructive sleep apnea recommended auto PAP 5-15 cm of water Pancreatitis (09/2018) Peripheral arterial disease with history of revascularization Left leg <Santa Verdugo PA-C - Last Filed: 12/16/22 23:04> Surgical History Surgical History: Surgical History History of arthroscopy of right knee History of cardiac catheterization 2017 and May 2021 History of cholecystectomy History of colonoscopy with polypectomy History of partial thyroidectomy History of surgical removal of ganglion cyst Left wrist. <Santa Verdugo PA-C - Last Filed: 12/16/22 23:04> Family History Family History: Family History Father Heart disease Mother Uterine cancer Sibling Hypertension <Santa Verdugo PA-C - Last Filed: 12/16/22 23:04> Social History Social History: Social History Social History: The patie
[2022-12-16] MEDS: ACETAMINOPHEN 325 MG TABLET 650 MG PO (20:57)
[2022-12-16 22:07] LABS: Basophils Absolute Auto 0.1 K/mm3 (0.0-0.1); Basophils Percent Auto 0.8 % (0.2-1.2); Eosinophils Absolute Auto 0.1 K/mm3 (0-0.3); Eosinophils Percent Auto 0.9 % (0-4.4); Hematocrit 37.1 % (42.0-52.0); Immature Granulocyte Absolute 0.04 K/mm3 (0.00-0.031); Immature Granulocyte Percent A 0.5 % (0-0.5); Lymphocytes Absolute Auto 1.66 K/mm3 (0.9-3.2); Lymphocytes Percent Auto 19.2 % (18.3-44.2); Mean Corpuscular Hemoglobin 30.2 pg (26-34); Mean Corpuscular Volume 86.3 fl (80-100); Mean Platelet Volume 8.7 fl (7.4-10.4); Monocytes Absolute Auto 0.8 K/mm3 (0.1-0.6); Monocytes Percent Auto 8.9 % (2.6-8.5); Neutrophils Percent Auto 69.7 % (45.5-73.1); Platelet Count Result 184 k/mm3 (150-375); Red Cell Distribution Width 13.8 % (11.5-14.5); White Blood Count 8.6 K/mm3 (4.5-10.0)
[2022-12-16 22:24] LABS: Alanine Aminotransferase 20 U/L (6-50); Albumin Level 3.6 g/dL (3.5-5.1); Alkaline Phosphatase 86 U/L (38-126); Anion Gap 3 mmol/L (8-16); Aspartate Amino Transferase 19 U/L (17-59); Blood Urea Nitrogen 14 mg/dL (9-20); Calcium 8.5 mg/dL (8.4-10.2); Carbon Dioxide 31 mmol/L (22-30); Chloride 106 mmol/L (98-107); Creatine Kinase 83 U/L (55-170); Estimated CRCL calculation 95 ml/min; Estimated Glomerular Filt Rate > 60; Glucose 127 mg/dL (65-110); Potassium 3.2 mmol/L (3.4-5.0); Sodium 140 mmol/L (137-145)
[2022-12-16 22:25] LABS: Lactic Acid Reflex 0.8 mmol/L (0.7-2.0)
[2022-12-16 22:32] LABS: NT Pro B Type Natriuretic Pept 102 pg/mL (19.9-100)
[2022-12-16 22:58] VITALS: RESP 20; TEMP 36
== END 2022-12-16 23:10 | disposition home or self-care (01) ==
PROVIDERS: Emergency Provider Physician Assistant; PCP Internal Medicine
DX: L03.115 Cellulitis of right lower limb (principal); E87.6 Hypokalemia; D64.9 Anemia, unspecified; I25.10 Atherosclerotic heart disease of native coronary artery without angina pectoris; E78.5 Hyperlipidemia, unspecified; I10 Essential (primary) hypertension; I73.9 Peripheral vascular disease, unspecified; E89.0 Postprocedural hypothyroidism; G47.33 Obstructive sleep apnea (adult) (pediatric); K21.9 Gastro-esophageal reflux disease without esophagitis; Z79.82 Long term (current) use of aspirin; Z86.718 Personal history of other venous thrombosis and embolism
CPT/HCPCS: 36415; 73610; 80053; 82550; 83605; 83880; 85025; 93971; 99284; A9270

== ENCOUNTER 2024-07-05 18:52 | Observation (INO) | payer MEDICARE, SELFPAY ==
[2024-07-05] VITALS (37 sets, daily range): BP systolic 107–140; BP diastolic 54–100; PULSE 63–83; RESP 9–24; TEMP 36.7–36.9; O2SAT 93–99
--- NOTE | ~2024-07-05 | XR_ITS ---
EXAMINATION: XR chest 2V DATE: 07/05/2024 19:46 INDICATION: Chest pain. Shortness of breath. TECHNIQUE: Frontal and lateral views of the chest were obtained. COMPARISON: Chest 2 views 10/18/2022, chest CT 09/15/20 FINDINGS: There is no pneumonia, pleural effusion, or pneumothorax. The heart size is normal. 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 IMPRESSION: 1. No acute cardiopulmonary disease. Reviewed, dictated and finalized at location A.
--- NOTE | ~2024-07-05 | CT_ITS ---
EXAMINATION: CTA chest DATE: 07/05/2024 22:06 INDICATION: Chest pain. TECHNIQUE: Computed tomographic angiography (CTA) of the chest was performed with 100 mL Omnipaque-35 0 intravenous contrast. Automated exposure control and iterative reconstruction technique were employ ed. The dose-length product was 1126.82 mGy-cm. Maximum intensity projection 3D-reconstructions of th e aorta and other arteries were constructed by the technologist on a separate workstation. COMPARISON: Chest CT 09/15/2020 FINDINGS: The lungs demonstrate minimal atelectasis. No pleural effusion. The heart size is normal. N o pericardial effusion. There are coronary artery calcifications. There is no pulmonary embolus. Ther e is mild aortic atherosclerosis. No aneurysm or dissection. There are changes of cholecystectomy. Th ere is a chronic nonaggressive expansile lytic lesion in left fifth rib with groundglass matrix, like ly fibrous dysplasia. There is mild thoracic spondylosis. IMPRESSION: 1. Mild aortic atherosclerosis. No aneurysm or dissection. 2. No pulmonary embolus. Reviewed, dictated and finalized at location A.
--- NOTE | 2024-07-05 18:57 | ECG_ITS ---
Test Date: 2024-07-05 19:58:21 Measurements Intervals [place] Rate: 72 P: 53 [place]: 196 QRS: 24 QRSD: 93 T: 22 QT: 392 QTc: 432 Interpretive Statements SINUS RHYTHM NORMAL ELECTROCARDIOGRAM No previous ECG available for comparison Electronically Signed On 07-07-2024 12:53:50 CDT by Naun Goncalves M.D.
--- NOTE | 2024-07-05 19:48 | ED.CHESTPAIN ---
HPI - Chest Pain General Chief Complaint: Chest Pain Stated Complaint: chest pain Time Seen by Provider: 07/05/24 19:09 History of Present Illness HPI narrative: Patient is a 73-year-old male who presents to the emergency department this evening complaining of chest pain that started approximately 1 hour prior to arrival. Patient also complaining of shortness of breath associated with the chest pain. Admits to history of coronary artery disease and previous IN but states that he has never had any stents. He states that the pain is left-sided and stabbing/sharp in nature. Pain does not radiate. Patient denies any nausea or vomiting. No additional symptoms or concerns at this time. Patient states that he took 2 nitroglycerin at home prior to arrival with minimal improvement of his chest pain. Patient states the chest pain started while he was resting and states that he was not exerting himself. Related Data Home Medications Medication Instructions Recorded Confirmed aspirin 81 mg tablet,delayed 81 mg PO DAILY 09/15/20 10/18/22 release atorvastatin 40 mg tablet 40 mg PO DAILY 09/15/20 10/18/22 omeprazole 20 mg capsule,delayed 20 mg PO DAILY 09/15/20 10/18/22 release losartan 100 mg tablet 100 mg PO DAILY 09/30/22 10/18/22 Allergies Allergy/AdvReac Type Severity Reaction Status Date / Time heparin Allergy Difficulty Verified 10/18/22 16:08 Breathing Review of Systems Review of Systems: All systems are reviewed and are negative unless stated otherwise in the HPI. [facility] Past Medical History Medical History Chronic anemia Chronic, mild normocytic anemia. Coronary artery disease Cardiac catheterization in 2017 showed a 50% blockage, per patient report. No intervention undertaken. Gastroesophageal reflux disease Hyperlipidemia Hypertension THERESA (obstructive sleep apnea) Polysomnogram July 2022: Demonstrated mild obstructive sleep apnea recommended auto PAP 5-15 cm of water Pancreatitis (09/2018) Peripheral arterial disease with history of revascularization Left leg Surgical History Surgical History History of arthroscopy of right knee History of cardiac catheterization 2017 and May 2021 History of cholecystectomy History of colonoscopy with polypectomy History of partial thyroidectomy History of surgical removal of ganglion cyst Left wrist. Family History Family History Father Heart disease Mother Uterine cancer Sibling Hypertension Social History Social History Social History: The patient lives in [place] with his . 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 No alcohol or illicit substance abuse. He designates his , Roula, as his surrogate decision maker. Code status: Full code. Smoking status: Never smoker Alcohol intake: current Drinks per week: 1 Substance use: never Lack of Transportation: No Lack of Food: Never True Current Housing: I Have Housing Concerned About Future Housing: No Difficulty Paying Gas/Electric Bills: No Difficulty Paying for Meds: No Currently Unemployed: No Education: Trade/Vocational Certificate Difficulty w/ Childcare or Family Care: No Gender identity (if verbalized by the patient): Male Spiritual care concerns: No Exam Narrative: General: Alert, awake, afebrile, in no acute distress. HEENT: PERRL, no rhinorrhea, no post nasal drip, oropharynx clear. Cardiovascular: Regular rate and rhythm, no murmurs, rubs or gallops, 2+ lower extremity pitting edema. Respiratory: Clear to auscultation bilaterally, no tachypnea, no wheezing, no rhonchi, no rubs, no respiratory distress. Abdomen: Soft, nontender, nondistended, no rebound, no guarding, no peritoneal signs. Musculoskeletal: No j
[2024-07-05 20:08] LABS: Basophils Percent Auto 0.4 % (0.2-1.2); Eosinophils Absolute Auto 0.1 K/mm3 (0-0.3); Eosinophils Percent Auto 0.8 % (0-4.4); Hematocrit 37.3 % (42.0-52.0); Hemoglobin 13.1 g/dL (14.0-18.0); Immature Granulocyte Absolute 0.05 K/mm3 (0.00-0.031); Immature Granulocyte Percent A 0.5 % (0-0.5); Lymphocytes Absolute Auto 1.85 K/mm3 (0.9-3.2); Mean Corpuscular HGB Conc 35.1 g/dl (32-36); Mean Corpuscular Hemoglobin 30.6 pg (26-34); Mean Corpuscular Volume 87.1 fl (80-100); Mean Platelet Volume 9.2 fl (7.4-10.4); Monocytes Absolute Auto 0.8 K/mm3 (0.1-0.6); Monocytes Percent Auto 8.5 % (2.6-8.5); Neutrophils Absolute Auto 6.9 K/mm3 (1.3-6.7); Neutrophils Percent Auto 70.8 % (45.5-73.1); Platelet Count Result 183 k/mm3 (150-375); Red Blood Count 4.28 M/mm3 (4.6-6.20); Red Cell Distribution Width 13.4 % (11.5-14.5); White Blood Count 9.7 K/mm3 (4.5-10.0)
[2024-07-05 20:27] LABS: NT Pro B Type Natriuretic Pept 52 pg/mL (19.9-100)
[2024-07-05 20:38] LABS: Alanine Aminotransferase 17 U/L (6-50); Albumin Level 3.8 g/dL (3.5-5.1); Alkaline Phosphatase 80 U/L (38-126); Anion Gap 10 mmol/L (4-12); Aspartate Amino Transferase 17 U/L (17-59); Bilirubin,Total 1.4 mg/dL (0.2-1.3); Blood Urea Nitrogen 22 mg/dL (9-20); Calcium 9.4 mg/dL (8.4-10.2); Carbon Dioxide 26 mmol/L (22-30); Chloride 100 mmol/L (98-107); Estimated CRCL calculation 87 ml/min; Estimated Glomerular Filt Rate > 60; Glucose 117 mg/dL (65-110); Lipase 29 U/L (23-300); Potassium 3.7 mmol/L (3.4-5.0); Sodium 136 mmol/L (137-145)
[2024-07-05 20:43] LABS: INR 1.1; Prothrombin Time 14.4 Seconds (11.1-14.7)
[2024-07-05 20:44] LABS: Partial Thromboplastin Time 25.1 Seconds (22.3-36.8)
[2024-07-05 20:51] LABS: Troponin I < 0.012 ng/mL (0.000-0.034)
[2024-07-05] MEDS: MORPHINE SULFATE (*CRX) 2 MG/ML INJ IV PUSH (21:37)
[2024-07-05] MEDS: ONDANSETRON INJ 4 MG/2 ML VIAL IV PUSH (21:37)
[2024-07-05] MEDS: PANTOPRAZOLE SODIUM IV 40 MG VIAL IV PUSH (22:17)
[2024-07-05 22:38] LABS: Erythrocyte Sedimentation Rate 22 mm/hr (0-20)
[2024-07-05 23:35] LABS: CRP < 0.5 mg/dL (<1.0)
[2024-07-05 23:53] LABS: Troponin I < 0.012 ng/mL (0.000-0.034)
[2024-07-06] VITALS (61 sets, daily range): BP systolic 113–164; BP diastolic 52–85; PULSE 54–80; RESP 8–22; TEMP 36.1–36.6; O2SAT 89–100; BMI 37.4
--- NOTE | 2024-07-06 03:00 | ECG_ITS ---
Test Date: 2024-07-06 01:07:29 Measurements Intervals [place] Rate: 66 P: 64 PA: 204 QRS: 38 QRSD: 103 T: 35 QT: 416 QTc: 439 Interpretive Statements SINUS RHYTHM POSSIBLE RIGHT VENTRICULAR CONDUCTION DELAY [RSR (QR) IN V1/V2] WITHIN NORMAL LIMITS Compared to ECG 07/05/2024 19:58:21 No significant changes Electronically Signed On 07-07-2024 13:01:42 CDT by Naun Goncalves M.D.
--- NOTE | 2024-07-06 03:22 | ECG_ITS ---
Test Date: 2024-07-06 03:23:43 Measurements Intervals [place] Rate: 64 P: 63 NH: 205 QRS: 34 QRSD: 89 T: 38 QT: 423 QTc: 438 Interpretive Statements SINUS RHYTHM NORMAL ELECTROCARDIOGRAM Compared to ECG 07/06/2024 01:07:29 No significant changes Electronically Signed On 07-07-2024 13:02:00 CDT by Naun Goncalves M.D.
[2024-07-06 03:52] LABS: Troponin I < 0.012 ng/mL (0.000-0.034)
--- NOTE | 2024-07-06 09:27 | PM.IMHP ---
H&P: HPI History of Present Illness Date/Time: 07/06/24 09:27 Chief Complaint: Chest pain Narrative: 73-year-old male with history of coronary disease, pre diabetes, hypertension and hyperlipidemia who presents to the emergency room with complaints of chest pain. The patient had a myocardial infarction about 6 years ago but heart catheterization only showed about 30-50% blockage so no intervention was undertaken. Had a more recent heart catheterization in 2020 according to the notes present. He has been having chest tightness intermittently over the past few months on average about once a week. He has been using nitroglycerin with benefit. His iron pellet tester is Dr. St who was aware these symptoms. Patient had a chemical stress test and a CT for calcium score about 10 days ago but results are unknown. 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 No chest pain but did have shortness of breath with exertion. He did take frequent breaks. He felt well driving home. He was outside (non-exertional activity) for about 15-20 minutes at home but upon entering the house, he developed chest pain had a constant component that was 3-4/10 as well as a stabbing chest pain that was 9/10. It was associated with shortness of breath and he felt queasy . No vomiting. The pain was not palpable or positional. Pain radiated to left neck and shoulder. The pain did have a pleuritic component. He took 2 nitroglycerin with benefit but still had persistent pain at which point EMS was contacted and patient was brought to the emergency room for evaluation. This chest pain was similar to pains been having recently but was much more severe. No fever, chills, vision changes, hearing changes, dysphagia, odynophagia, diarrhea, constipation, abdominal pain, back pain, dysuria or hematuria. He has chronic right greater than left edema but no history of heart failure. He has a slight cough especially with exertion associated with postnasal drainage. His occasional headache that is longstanding and better with [id number] medications Patient presented About an hour hour after the onset of the chest pain. His vital signs were stable. labwork was unrevealing except for hemoglobin of 13, sodium 136, BUN 22 and bilirubin 1.4. Troponin negative x3. Lipase norm CTA of the chest was negative for PE did show mild aortic atherosclerosis. No aneurysm or dissection noted. 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 EKG showed normal sinus rhythm with rate of [address]- T wave changes. Repeat EKG showed no change. He was given aspirin, morphine and Zofran with benefit. Protonix given. He was admitted for further care. Review of Systems Review of Systems: All systems reviewed & are unremarkable except as noted in HPI and below PMFSH Past Medical History Medical History Chronic anemia Chronic, mild normocytic anemia. Coronary artery disease Cardiac catheterization in 2018 showed a 50% blockage, per patient report. No intervention undertaken. Gastroesophageal reflux disease Hyperlipidemia Hypertension THERESA (obstructive sleep apnea) Noncompliant with CPAP Polysomnogram July 2022: Demonstrated mild obstructive sleep apnea recommended auto PAP 5-15 cm of water Pancreatitis (09/2018) Peripheral arterial disease with history of revascularization Left leg Pre-diabetes Surgical History Surgical History History of arthroscopy of right knee History of cardiac catheterization 2017 and May 2021 History of cholecystectomy History of colonoscopy with polypectomy History of partial thyroidectomy at age 5yo History of surgical removal of ganglion cyst Left wrist. Family History Family History (Reviewed 07/06/24 @ 09:45 by Rizwan
[2024-07-06] MEDS: METOPROLOL TARTRATE 25 MG TABLET PO ×2 (09:51→21:03)
[2024-07-06] MEDS: PANTOPRAZOLE 40 MG TABLET PO (09:51)
[2024-07-06] MEDS: CYANOCOBALAMIN 500 MCG TABLET PO (09:52)
[2024-07-06] MEDS: ASPIRIN 81 MG ENTERIC TABLET PO (09:52)
[2024-07-06] MEDS: ATORVASTATIN 40 MG TABLET PO (09:52)
[2024-07-06] MEDS: LOSARTAN POTASSIUM 100 MG TABLET PO (09:52)
[2024-07-06 10:57] LABS: Anion Gap 8 mmol/L (4-12); Blood Urea Nitrogen 19 mg/dL (9-20); Calcium 8.9 mg/dL (8.4-10.2); Carbon Dioxide 30 mmol/L (22-30); Chloride 99 mmol/L (98-107); Cholesterol 133 mg/dL (0-200); Estimated CRCL calculation 87 ml/min; Estimated Glomerular Filt Rate > 60; Glucose 160 mg/dL (65-110); HDL Direct 30 mg/dL; Potassium 3.8 mmol/L (3.4-5.0); Sodium 137 mmol/L (137-145); Triglycerides 124 mg/dL (<150)
[2024-07-06 10:58] LABS: INR 1.1; Prothrombin Time 14.3 Seconds (11.1-14.7)
[2024-07-06 11:02] LABS: Hemoglobin A1C 6.5 % (<5.7)
[2024-07-06 11:09] LABS: LDL Cholesterol Direct 83 mg/dL
[2024-07-06 11:52] LABS: Glucose Point of Care 147 mg/dl (65-105)
--- NOTE | 2024-07-06 14:33 | ADMGEN ---
This patient, Alber Romero, was admitted to IMU Room 213-01. Patient/family oriented to hospital policies and general routines including ID bracelet, bed and alarms, visiting hours, pain management, procedures, bathroom and other care routines, personal items, smoking policy, room service/diet, and visiting hours. Information on how to activate the Rapid Response Team has been discussed. Patient/Family are encouraged to report perceived risks to care and to ask questions if they do not understand what they are told or what they should do.
--- NOTE | 2024-07-06 15:59 | PM.CNCAR ---
Assessment and Plan Assessment and plan (1) Chest pain: Qualifiers: Chest pain type: chest pain due to myocardial ischemia Ischemic chest pain type: unstable angina pectoris Qualified Code(s): I20.0 - Unstable angina Code(s): R07.9 - Chest pain, unspecified Status: Acute Assessment and Plan: Atypical chest pain with no objective evidence of acute coronary syndrome with negative serial troponins and EKG showing normal sinus rhythm with no ischemic changes. He had a negative nuclear stress test last week. I doubt his chest pain is related to myocardial ischemia. Echo is pending. If LV function is normal and he does not have any wall motion abnormalities no further workup will be recommended and he can be discharged from a cardiac standpoint. (2) Coronary artery disease: Qualifiers: Associated angina: without angina Coronary Disease-Associated Artery/Lesion type: unspecified vessel or lesion type [place] vs. transplanted heart: [place] heart Qualified Code(s): I25.10 - Atherosclerotic heart disease of [place] coronary artery without angina pectoris Code(s): I25.10 - Atherosclerotic heart disease of [place] coronary artery without angina pectoris Status: Chronic Assessment and Plan: Per patient, had a coronary angiogram about 5 years ago that showed only 30-40% stenosis in 1 artery, no stenting. He had a nuclear stress test last week that was negative for any ischemia or infarct. Continue aspirin, statin, risk factor modification for coronary artery disease. History of Present Illness History of Present Illness Consult date/time: 07/06/24 15:59 Consult reason: chest pain Reason For Visit: Chest pain, History of coronary artery disease Narrative: Alber Romero is a 73 year old male with mild, nonobstructive coronary artery disease, hypertension, and hyperlipidemia. He comes to the hospital with a chief complaint of chest pain. He has been having intermittent chest pain for the past few months which his established gemologist, Dr. Manley is aware of and ordered a stress test to evaluate which was negative for any ischemia or infarct. On the day of presentation he began to experience chest discomfort similar to the pain he has had intermittently for the past month, except he also had an intermittent sharp/stabbing pain. He took a nitroglycerin but did not experience relief of the pain. Because of this he came to the emergency department. His chest pain has been constant since admission and currently is at a 3-4/10. He is not having and shortness of breath, palpitations. The pain is not reproducible. He has no other complaints at the time of my evaluation. Review of Systems Review of Systems: All systems reviewed & are unremarkable except as noted in HPI and below PMFSH Past Medical History Medical History Chronic anemia Chronic, mild normocytic anemia. Coronary artery disease Cardiac catheterization in 2017 showed a 50% blockage, per patient report. No intervention undertaken. Gastroesophageal reflux disease Hyperlipidemia Hypertension THERESA (obstructive sleep apnea) Noncompliant with CPAP Polysomnogram July 2022: Demonstrated mild obstructive sleep apnea recommended auto PAP 5-15 cm of water Pancreatitis (09/2018) Peripheral arterial disease with history of revascularization Left leg Pre-diabetes Surgical History Surgical History History of arthroscopy of right knee History of cardiac catheterization 2017 and May 2021 History of cholecystectomy History of colonoscopy with polypectomy History of partial thyroidectomy at age 5yo History of surgical removal of ganglion cyst Left wrist. Family History Family History Father Heart disease Mother Uterine cancer Sibling Hypertension
[2024-07-06 17:08] LABS: Glucose Point of Care 105 mg/dl (65-105)
[2024-07-07] VITALS (15 sets, daily range): BP systolic 139–147; BP diastolic 66–70; PULSE 51–71; RESP 16–22; TEMP 36.3–36.6; O2SAT 97–100
--- NOTE | 2024-07-07 | ECHO_ITS ---
Patient Info Name: Alber Romero Age: 73 years : 1950 Gender: Male Ht: 76 in Wt: 307 lbs BSA: 2.78 m2 HR: 59 bpm BP: 139 / 70 mmHg Heart Rhythm: Sinus Rhythm Technical Quality: Poor Exam Date: 07/07/2024 9:37 AM Exam Location: Echo Lab Patient Status: Inpatient Admit Date: 07/06/2024 Staff Ordering Physician: Joyce Lopez Telephone Repairer: Carlos Alberto Lino RDCS Attending Provider: Santos Win MD Referring Physician: Jessica FINLEY; Exam Type: CA echo dop color flow w con Study Info Indications R07.9 - Chest pain, unspecified Complete two-dimensional, color flow and Doppler transthoracic echocardiogram is performed with contrast to opacify the left ventricle and to improve the deliniation of the left ventricle endocardial borders. Contrast/Agitated Saline Contrast/Ag. Saline: Definity Amount: 3.00 ml Existing IV Access: Yes Reason for Poor Study: patient body habitus Summary 1. Technically challenging exam because of patient obesity, definity contrast utilized. 2. Left ventricular hypertrophy with well-preserved systolic function no wall motion abnormalities. 3. Grade 1 diastolic noncompliance. 4. Mild left atrial enlargement. 5. Sclerosis of the aortic valve without aortic stenosis. Left Ventricle Left ventricular chamber dimension is normal. Left ventricular systolic function is normal, estimated at 60-65%. There is mild concentric increased left ventricular wall thickness. The left ventricular diastolic function is grade I diastolic dysfunction. Right Ventricle Right ventricular chamber dimension is normal. Left Atria Left atrial chamber dimension is mildly enlarged. Right Atria Right atrial chamber dimension is not well visualized. Aortic Valve The aortic valve is trileaflet. There is mild aortic valve sclerosis. Pulmonic Valve The pulmonic valve is not well visualized. Mitral Valve The mitral valve has normal leaflets. Tricuspid Valve The tricuspid valve leaflets are not well visualized. Pericardium/Pleural The pericardium appears normal. Aorta The aortic root size at the sinus of Valsalva is normal. Left Ventricular Outflow Tract Name Value Normal LVOT 2D LVOT Diameter 1.84 cm LVOT Doppler LVOT Peak Gradient 6 mmHg LVOT Mean Gradient 3 mmHg LVOT VTI 26.72 cm LVOT VTI/AV VTI Ratio 0.81 LVOT Stroke Volume 71.12 ml LVOT CO 3.43 l/min LVOT CI 1.23 L/min/m2 Pulmonic Valve Name Value Normal PV Doppler PV Peak Gradient 3 mmHg Mitral Valve Name Value Normal MV
[2024-07-07] MEDS: ASPIRIN 81 MG ENTERIC TABLET PO (08:34)
[2024-07-07] MEDS: ATORVASTATIN 40 MG TABLET PO (08:34)
[2024-07-07] MEDS: PANTOPRAZOLE 40 MG TABLET PO (08:34)
[2024-07-07] MEDS: LOSARTAN POTASSIUM 100 MG TABLET PO (08:34)
[2024-07-07] MEDS: METOPROLOL TARTRATE 25 MG TABLET PO (08:34)
[2024-07-07] MEDS: PERFLUTREN LIPID MICROSPHERES 1.5 ML VIAL DILUTED TO 10 ML TOTAL VOLUME IV PUSH (10:00)
--- NOTE | 2024-07-07 11:51 | IVDEFINITY ---
Prior to administration of IV Definity the patient was educated on the risks and benefits of the imaging enhancing agent including potential adverse side effects. The patient verbalized understanding. Allergies were verified. No exclusion criteria were identified and at least one of the following inclusion criteria were met: 1) physician request, 2) patient technically difficult to image (per the [place] [employer] Echocardi[employer] guidelines of two or more segments not discernable within the apical view), or 3) questionable left ventricular function. ?
[2024-07-07 12:10] LABS: Glucose Point of Care 142 mg/dl (65-105)
[2024-07-07 16:37] LABS: Glucose Point of Care 117 mg/dl (65-105)
--- NOTE | 2024-07-07 16:50 | PM.DS ---
DS: Admitting Diagnosis Discharge Date 07/07/24 Admitting Diagnosis Chest pain DS: Discharge Diagnosis Discharge Diagnosis (1) Acute chest pain: Code(s): R07.9 - Chest pain, unspecified Status: Acute (2) Coronary artery disease: Qualifiers: Coronary Disease-Associated Artery/Lesion type: unspecified vessel or lesion type [place] vs. transplanted heart: [place] heart Associated angina: without angina Qualified Code(s): I25.10 - Atherosclerotic heart disease of [place] coronary artery without angina pectoris Code(s): I25.10 - Atherosclerotic heart disease of [place] coronary artery without angina pectoris Status: Chronic (3) Pre-diabetes: Code(s): R73.03 - Prediabetes Status: Acute (4) Hyperlipidemia: Code(s): E78.5 - Hyperlipidemia, unspecified Status: Acute (5) THERESA (obstructive sleep apnea): Code(s): G47.33 - Obstructive sleep apnea (adult) (pediatric) Status: Acute (6) Hypertension: Qualifiers: Hypertension type: unspecified Qualified Code(s): I10 - Essential (primary) hypertension Code(s): I10 - Essential (primary) hypertension Status: Chronic (7) Poor dentition: Code(s): K08.9 - Disorder of teeth and supporting structures, unspecified Status: Acute (8) Obesity: Qualifiers: Obesity type: unspecified obesity type Obesity classification: unspecified obesity classification Serious obesity comorbidity presence: without serious comorbidity Qualified Code(s): E66.9 - Obesity, unspecified Code(s): E66.9 - Obesity, unspecified Status: Chronic Plan Patient presents to the emergency room with complaints of chest pain. This chest pain appears to have been ongoing for few months but much worse prior to presentation. He has had appropriate cardiac evaluation recently. I have called the cardiology office and have requested copies of the stress test, CT scan, recent echo and recent heart catheterization reports. Here, troponins are negative and EKG is not concerning for acute coronary syndrome. Will continue aspirin, Lipitor and metoprolol. Continue losartan. Will hold HCTZ and spironolactone at this time until we can determine if he needs a heart catheterization. Cardiology has been consulted. Will check A1c. Will place him on a sliding scale protocol. He was advised to have dental work performed since this can contribute to a chronic inflammatory process that has been related to coronary disease. He voices understanding. Will check lipid panel. Healthy lifestyle was encouraged. Further recommendation as course dictates. DS: Summary Hospital Course Reason for hospitalization: 73-year-old male with history of coronary disease, pre diabetes, hypertension and hyperlipidemia who presents to the emergency room with complaints of chest pain. Please see H&P for details. Hospital Course: Patient presented about an hour hour after the onset of the chest pain. His vital signs were stable. Lab work was unrevealing except for hemoglobin of 13, sodium 136, BUN 22 and bilirubin 1.4. Troponin negative x3. Lipase normal. CTA of the chest was negative for PE did show mild aortic atherosclerosis. No aneurysm or dissection noted. 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 EKG was essentially normal. Repeat EKG showed no change. He was given aspirin, morphine and Zofran with benefit. Protonix given. Echo showing mild concentric LVH with well-preserved systolic function and no wall motion abnormalities. EF 60-65%. Grade I diastolic dysfunction noted. We were able to get a copy of the recent cardiovascular stress test performed in conjunction with PET MPI, gated wall motion and myocardial blood flow with rubidium at rest and post regadenoson infusion. This showed normal resting ECG, normal regadenoson ECG with no ischemia ST or T changes following vasodilator infusi
== END 2024-07-07 18:10 | disposition home or self-care (01) ==
LOC: ANHED 07-06 01:00 → ANHIMU 07-06 14:24
PROVIDERS: Emergency Medicine; Admitting Provider Internal Medicine; Emergency Provider Emergency Medicine; PCP Internal Medicine; Visit Provider Internal Medicine
DX: I25.110 Atherosclerotic heart disease of native coronary artery with unstable angina pectoris (principal); R06.02 Shortness of breath; I35.8 Other nonrheumatic aortic valve disorders; R73.03 Prediabetes; I10 Essential (primary) hypertension; E78.5 Hyperlipidemia, unspecified; G47.33 Obstructive sleep apnea (adult) (pediatric); D64.9 Anemia, unspecified; I73.9 Peripheral vascular disease, unspecified; K08.9 Disorder of teeth and supporting structures, unspecified; E66.9 Obesity, unspecified; Z68.36 Body mass index [BMI] 36.0-36.9, adult; Z79.82 Long term (current) use of aspirin
CPT/HCPCS: 36415; 71046; 71275; 80048; 80053; 80061; 82948; 83036; 83690; 83880; 84443; 84484; 85025; 85610; 85652; 85730; 86140; 93005; 96374; 96375; 99285; A9270; C8929; G0378; J2270; J2405; J2470; Q9957; Q9967

== ENCOUNTER 2024-07-27 09:31 | Emergency (ER) | payer MEDICARE, SELFPAY ==
--- NOTE | ~2024-07-27 | XR_ITS ---
EXAMINATION: XR shoulder RT min 2V DATE: 07/27/2024 10:08 INDICATION: Right shoulder pain. TECHNIQUE: 4 views of right shoulder were obtained. COMPARISON: None. FINDINGS: Alignment is normal. No fracture. There is mild osteoarthritis of glenohumeral joint and mo derate osteoarthritis of acromioclavicular joint. IMPRESSION: 1. Polyarticular osteoarthritis. Reviewed, dictated and finalized at location A.
[2024-07-27 09:38] VITALS: BP 135/71; PULSE 80; RESP 16; TEMP 36.4; O2SAT 98
--- NOTE | 2024-07-27 09:44 | ED.EXTPRO ---
HPI - Extremity Problem General Chief complaint: Extremity Problem,Nontraumatic Stated complaint: R SHOULDER PAIN Time Seen by Provider: 07/27/24 09:52 Source: patient, EMS, RN notes reviewed and old records reviewed Mode of arrival: ambulatory Limitations: no limitations History of Present Illness HPI Narrative: 73 year old male presents to express care with complaints of right shoulder pain for the past 4 days which is a constant ache. Patient reports that he noticed pain when he moved a 5 gallon water bottle but denies any known injury. Patient has increased pain which is sharp with lifting arm,pushing or lowering his arm. He states that he can only lift his arm correction before he get sharp pain to shoulder. Patient has healing shingles to his right forearm took his last dose of acyclovir yesterday. Patient has strong pulses to right arm, denies any tingling or numbness in arm or hand. Patient reports that he has been taking Tylenol for his discomfort. MD Complaint: other (right shoulder pain) Onset (ago): day(s) (4) Location: right and upper extremity (shoulder) Severity scale (1-10): 3 Exacerbating factors: range of motion Related Data Home Medications Medication Instructions Recorded Confirmed aspirin 81 mg tablet,delayed 81 mg PO DAILY 09/15/20 07/27/24 release atorvastatin 40 mg tablet 40 mg PO DAILY 09/15/20 07/27/24 omeprazole 20 mg capsule,delayed 20 mg PO DAILY 09/15/20 07/27/24 release hydrochlorothiazide 25 mg tablet 25 mg PO DAILY 07/06/24 07/27/24 mecobalamin (vitamin B12) 500 mcg 500 mcg PO QMWF 07/06/24 07/27/24 chewable tablet metoprolol tartrate 25 mg tablet 25 mg PO BID 07/06/24 07/27/24 nitroglycerin 0.4 mg sublingual 0.4 mg sublingual Q5-15M PRN Chest 07/06/24 07/27/24 tablet Pain spironolactone 50 mg tablet 50 mg PO DAILY 07/06/24 07/27/24 vitamin E 268 mg (400 unit) capsule 180 mg PO DIRECTED 07/06/24 07/27/24 Allergies Allergy/AdvReac Type Severity Reaction Status Date / Time heparin Allergy Difficulty Verified 07/27/24 09:49 Breathing Review of Systems Review of Systems: CONSTITUTIONAL: Denies fever, chills, or sweats. EYES: Denies visual changes, redness, or discharge. ENT: Denies rhinorrhea, congestion, sore throat, or otalgia. CARDIOVASCULAR: Denies chest pain, palpitations, or edema. RESPIRATORY: Denies cough or dyspnea. GASTROINTESTINAL: Denies abdominal pain, nausea, vomiting, or diarrhea. GENITOURINARY: Denies dysuria or hematuria. SKIN: Denies rash or itching. MUSCULOSKELETAL: Denies back pain,positive for pain to AC joint region of right shoulder with limited mobility, or myalgia. NEUROLOGIC: Denies headache, numbness, or weakness. PSYCHIATRIC: Denies anxiety or depression. All systems reviewed & are unremarkable except as noted in HPI and below PMFSH Past Medical History Medical History Chronic anemia Chronic, mild normocytic anemia. Coronary artery disease Cardiac catheterization in 2017 showed a 50% blockage, per patient report. No intervention undertaken. Gastroesophageal reflux disease Hyperlipidemia Hypertension THERESA (obstructive sleep apnea) Noncompliant with CPAP Polysomnogram July 2022: Demonstrated mild obstructive sleep apnea recommended auto PAP 5-15 cm of water Pancreatitis (09/2018) Peripheral arterial disease with history of revascularization Left leg Pre-diabetes Surgical History Surgical History History of arthroscopy of right knee History of cardiac catheterization 2017 and May 2021 History of cholecystectomy History of colonoscopy with polypectomy History of partial thyroidectomy at age 5yo History of surgical removal of ganglion cyst Left wrist. Family History Family History Father Heart disease Mother Uterine cancer Sibling Hypertension Social H
== END 2024-07-27 10:49 | disposition home or self-care (01) ==
PROVIDERS: Emergency Provider Registered Nurse; PCP Internal Medicine
DX: M19.011 Primary osteoarthritis, right shoulder (principal); M25.511 Pain in right shoulder; I25.10 Atherosclerotic heart disease of native coronary artery without angina pectoris; K21.9 Gastro-esophageal reflux disease without esophagitis; E78.5 Hyperlipidemia, unspecified; I10 Essential (primary) hypertension; I73.9 Peripheral vascular disease, unspecified; R73.03 Prediabetes; D64.9 Anemia, unspecified; G47.33 Obstructive sleep apnea (adult) (pediatric); Z91.199 Patient's noncompliance with other medical treatment and regimen due to unspecified reason; Z90.89 Acquired absence of other organs; Z79.82 Long term (current) use of aspirin
CPT/HCPCS: 73030; 99213; G0463

== ENCOUNTER 2024-08-11 12:58 | Outpatient (RCR) | payer MEDICARE, SELFPAY | END 2024-09-29 15:43 | disposition home or self-care (01) | LOC: ANHDMC 12:58 | PROVIDERS: PCP Internal Medicine; Visit Provider Internal Medicine | DX: E11.9 Type 2 diabetes mellitus without complications (principal); Z71.89 Other specified counseling | CPT/HCPCS: G0108 ==

== ENCOUNTER 2024-09-20 03:04 | Day surgery (SDC) | payer MEDICARE, SELFPAY ==
[2024-09-08 15:50] VITALS: BMI 39.2
[2024-09-20] MEDS: LACTATED RINGERS 1,000 ML 150 ML IV CONT (06:48)
[2024-09-20 06:49] VITALS: BP 154/71; PULSE 100; RESP 18; TEMP 36.3; O2SAT 97
--- NOTE | 2024-09-20 07:23 | P.HP_ITS ---
History of Present Illness History of Present Illness Consent: Risks, benefits, and alternatives have been discussed and questions answered. Patient agrees to proceed with procedure. Chief complaint: Personal history colon polyps Narrative: Alber Romero is a 74 year old male with colon polyp about 3-4 years ago Review of Systems Review of Systems: All systems reviewed & are unremarkable except as noted in HPI and below PMFSH Past Medical History Medical History (Updated 09/20/24 @ 07:24 by Bryan Alexander MD) Chronic anemia Chronic, mild normocytic anemia. Colon polyp Coronary artery disease Cardiac catheterization in 2017 showed a 50% blockage, per patient report. No intervention undertaken. Gastroesophageal reflux disease Hyperlipidemia Hypertension THERESA (obstructive sleep apnea) Noncompliant with CPAP Polysomnogram July 2022: Demonstrated mild obstructive sleep apnea recommended auto PAP 5-15 cm of water Pancreatitis (09/2018) Peripheral arterial disease with history of revascularization Left leg Pre-diabetes Surgical History Surgical History History of arthroscopy of right knee History of cardiac catheterization 2017 and May 2021 History of cholecystectomy History of colonoscopy with polypectomy History of partial thyroidectomy at age 5yo History of surgical removal of ganglion cyst Left wrist. Family History Family History Father Heart disease Mother Uterine cancer Sibling Hypertension Social History Social History Social History: The patient lives in [place] with his . 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 No alcohol or illicit substance abuse. He designates his , Roula, as his surrogate decision maker. Code status: Full code. Smoking status: Never smoker Alcohol intake: current Drinks per week: 1 Substance use: never Substance use type: does not use Do You Feel Safe in your Home?: Yes Lack of Transportation: No Lack of Food: Never True Current Housing: I Have Housing Concerned About Future Housing: No Difficulty Paying Gas/Electric Bills: No Difficulty Paying for Meds: No Currently Unemployed: No Education: High School Diploma/GED Difficulty w/ Childcare or Family Care: No Living arrangements: with family Gender identity (if verbalized by the patient): Male Spiritual care concerns: No Meds Home Medications and Allergies Home Medications Medication Instructions Recorded Confirmed Type aspirin 81 mg tablet,delayed 81 mg PO DAILY 09/15/20 09/20/24 History release atorvastatin 40 mg tablet 40 mg PO DAILY 09/15/20 09/20/24 History omeprazole 20 mg capsule,delayed 20 mg PO DAILY 09/15/20 09/20/24 History release hydrochlorothiazide 25 mg tablet 25 mg PO DAILY 07/06/24 09/20/24 History mecobalamin (vitamin B12) 500 mcg 500 mcg PO QMWF 07/06/24 09/20/24 History chewable tablet metoprolol tartrate 25 mg tablet 25 mg PO BID 07/06/24 09/20/24 History nitroglycerin 0.4 mg sublingual 0.4 mg sublingual Q5-15M PRN Chest 07/06/24 09/20/24 History tablet Pain spironolactone 50 mg tablet 50 mg PO DAILY 07/06/24 09/20/24 History vitamin E 268 mg (400 unit) capsule 500 mg PO DIRECTED 07/06/24 09/20/24 History isosorbide dinitrate 30 mg tablet 30 mg PO DAILY 09/08/24 09/20/24 History losartan 100 mg tablet 100 mg PO DAILY 09/08/24 09/20/24 History metformin 500 mg tablet 500 mg PO BID 09/08/24 09/20/24 History Allergies Allergy/AdvReac Type Severity Reaction Status Date / Time heparin Allergy Difficulty Verified 09/20/24 06:34 Breathing Vital Signs Vital Signs - 24 hr 09/20/24 06:49 Temperature 97.4 F L Pulse Rate 100 Respiratory Rate 18 Blood Pressure 154/71 H Pulse Oximetry 97 Oxygen Delivery Room Air Exam Const: General: comfortable and no acute distress HENMT: Face/Nose/Sinus: Normal nares present Eyes: General: appearance normal, both eyes and all related structures Neck: Neck: no JVD Resp: Auscultation: clear to auscultation bilaterally Cardio: Rate: regular rate Rhythm: regular rhythm GI: Inspection: non-distended GI Palp: Yes Soft to palpation Skin: General skin exam: normal color Neuro: General: gait normal Speech: normal speech Extrem: General: normal to inspection Psych: Mental Status: mental status grossly normal Assessment and Plan Assessment and plan (1) Colon polyp: Code(s): K63.5 - Polyp of colon Status: Acute Assessment and Plan: colonoscopy
--- NOTE | 2024-09-20 07:34 | P.PNAN_ITS ---
Anes - Initial Pre Proc Eval Procedure: Operation Date: 09/20/24 07:30 Proposed Procedures p Colonoscopy - Bryan Alexander MD Date/Time: 09/20/24 07:34 Surgeon: Bryan Alexander MD Pre Op Diagnosis: Personal history colon polyps Patient Data Age: 74 Gender: M Height: 1.93 m Weight: 145.8 kg Last Vital Signs Temp 97.4 F L 09/20/24 06:49 Pulse 100 09/20/24 06:49 Resp 18 09/20/24 06:49 BP 154/71 H 09/20/24 06:49 Pulse Ox 97 09/20/24 06:49 O2 Del Method Room Air 09/20/24 06:49 Allergies Allergy/AdvReac Type Severity Reaction Status Date / Time heparin Allergy Difficulty Verified 09/20/24 06:34 Breathing Home Medications Medication Instructions Recorded Confirmed Type aspirin 81 mg tablet,delayed 81 mg PO DAILY 09/15/20 09/20/24 History release atorvastatin 40 mg tablet 40 mg PO DAILY 09/15/20 09/20/24 History omeprazole 20 mg capsule,delayed 20 mg PO DAILY 09/15/20 09/20/24 History release hydrochlorothiazide 25 mg tablet 25 mg PO DAILY 07/06/24 09/20/24 History mecobalamin (vitamin B12) 500 mcg 500 mcg PO QMWF 07/06/24 09/20/24 History chewable tablet metoprolol tartrate 25 mg tablet 25 mg PO BID 07/06/24 09/20/24 History nitroglycerin 0.4 mg sublingual 0.4 mg sublingual Q5-15M PRN Chest 07/06/24 09/20/24 History tablet Pain spironolactone 50 mg tablet 50 mg PO DAILY 07/06/24 09/20/24 History vitamin E 268 mg (400 unit) capsule 500 mg PO DIRECTED 07/06/24 09/20/24 History isosorbide dinitrate 30 mg tablet 30 mg PO DAILY 09/08/24 09/20/24 History losartan 100 mg tablet 100 mg PO DAILY 09/08/24 09/20/24 History metformin 500 mg tablet 500 mg PO BID 09/08/24 09/20/24 History ECG: sr 64 Other studies: Echo 07/06/24 EF 60-65% Patient hx anesthesia problems: none Family hx anesthesia problems: none Results Review: All pre-operative results and documents have been reviewed as part of the pre- operative evaluation. [facility] Past Medical History Medical History Chronic anemia Chronic, mild normocytic anemia. Colon polyp Coronary artery disease Cardiac catheterization in 2017 showed a 50% blockage, per patient report. No intervention undertaken. Gastroesophageal reflux disease Hyperlipidemia Hypertension THERESA (obstructive sleep apnea) Noncompliant with CPAP Polysomnogram July 2022: Demonstrated mild obstructive sleep apnea recommended auto PAP 5-15 cm of water Pancreatitis (09/2018) Peripheral arterial disease with history of revascularization Left leg Pre-diabetes Surgical History Surgical History History of arthroscopy of right knee History of cardiac catheterization 2017 and May 2021 History of cholecystectomy History of colonoscopy with polypectomy History of partial thyroidectomy at age 5yo History of surgical removal of ganglion cyst Left wrist. Family History Family History Father Heart disease Mother Uterine cancer Sibling Hypertension Social History Social History Social History: The patient lives in [place] with his . 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 No alcohol or illicit substance abuse. He designates his , Roula, as his surrogate decision maker. Code status: Full code. Smoking status: Never smoker Alcohol intake: current Drinks per week: 1 Substance use: never Substance use type: does not use Do You Feel Safe in your Home?: Yes Lack of Transportation: No Lack of Food: Never True Current Housing: I Have Housing Concerned About Future Housing: No Difficulty Paying Gas/Electric Bills: No Difficulty Paying for Meds: No Currently Unemployed: No Education: High School Diploma/GED Difficulty w/ Childcare or Family Care: No Living arrangements: with family Gender identity (if verbalized by the patient): Male Spiritual care concerns: No Anes - Eval Final PreProcedure Day of Procedure 09/20/24 07:34 Patient weight: obese Heart: regular rate and rhythm Lungs: clear to auscultation and decreased breath sounds Airway: Mallampati scale (poor dentition. advanced decay and breakage throughout) class II ASA classification: III Anesthetic plan: proceed Anesthesia type and monitoring: general GIVS Results Review: All pre-operative results and documents have been reviewed as part of the pre- operative evaluation. Informed Consent: The patient's anesthetic plan and its attendant risks and benefits were discussed with the patient/family/POA. Questions were solicited and answers provided to the satisfaction of the patient/family/POA.
[2024-09-20 07:52] LABS: Glucose Point of Care 146 mg/dl (65-105)
--- NOTE | 2024-09-20 08:01 | SUR.OPER ---
Sigmoid polyp not retrieved- MD made aware.
[2024-09-20 08:05] VITALS: BP 142/89; PULSE 92; RESP 18; O2SAT 100
[2024-09-20 08:15] VITALS: BP 133/65; PULSE 97; RESP 20; O2SAT 100
[2024-09-20 08:25] VITALS: BP 135/68; PULSE 87; RESP 16; O2SAT 100
== END 2024-09-20 08:42 | disposition home or self-care (01) ==
PROVIDERS: PCP Internal Medicine; Visit Provider Internal Medicine Gastroenterology
PROC: 0DJD8ZZ Inspection of Lower Intestinal Tract, Via Natural or Artificial Opening Endoscopic (ICD-10-PCS; CPT 45378; principal; 2024-09-20 07:30)
DX: Z12.11 Encounter for screening for malignant neoplasm of colon (principal); D12.2 Benign neoplasm of ascending colon; K63.5 Polyp of colon; I10 Essential (primary) hypertension; E78.5 Hyperlipidemia, unspecified; K21.9 Gastro-esophageal reflux disease without esophagitis; I25.10 Atherosclerotic heart disease of native coronary artery without angina pectoris; D64.9 Anemia, unspecified; I73.9 Peripheral vascular disease, unspecified; Z79.82 Long term (current) use of aspirin; Z79.84 Long term (current) use of oral hypoglycemic drugs; E66.9 Obesity, unspecified; Z68.39 Body mass index [BMI] 39.0-39.9, adult
CPT/HCPCS: 45385; 82948; 88305; J2003; J2704; J7120

== ENCOUNTER 2025-09-11 10:22 | Outpatient (CLI) | payer MEDICARE, SELFPAY ==
--- OUTSIDE RECORDS SUMMARY | 2025-09-11 11:35 | XMS_ITS | Clinical Summary ---
Author Organization [employer] Address [address] [place] [address] Care Team Providers Care Database Security Administrator Name Role Phone Everett Guerrero MD Primary Care Provider [phone] Source Comments [facility]non-owned Affiliates and Associated Physician Practices is amultiple site organization consisting of ambulatory clinics and hospital sitesin [place], [place], [place] and [place]. This disclosure is being madepursuant to the Care Everywhere program and may not contain all information available regarding this patient. Last updated 18.[facility] Allergies No known active allergies Medications * Be aware that medications may not be up to date on this document. Alwaysverify current medications with the patient. aspirin (ASPIRIN) 81 MG tablet Take 81 mg by mouth once daily Active atorvastatin (LIPITOR) 40 MG tablet Take 40 mg by mouth at bedtime Active carvedilol (COREG) 6.25 MG tablet Take 6.25 mg by mouth 2 times daily with morning and evening meal Active nitroGLYCERIN (NITROSTAT) 0.4 MG tablet Dissolve 0.4 mg under the tongue every 5 minutes as needed for Angina Active ranolazine ER 12hr (RANEXA) 1000 MG tablet Take 1,000 mg by mouth every 12 hours Active Social History Tobacco Use Types Packs/Day Years Used Date Smoking Tobacco: Never Smokeless Tobacco: Never Sex and Gender Information Value Date Recorded Sex Assigned at Not on file Legal Sex Male 6:29 PM CDT Gender Identity Not on file Sexual Orientation Not on file Last Filed Vital Signs Vital Sign Reading Time Taken Comments Blood Pressure 130/68 04/25/2017 10:07 AM CDT Pulse 75 04/25/2017 10:07 AM CDT Temperature 36.9 C (98.5 F) 04/25/2017 10:07 AM CDT Respiratory Rate 18 04/25/2017 10:07 AM CDT Oxygen Saturation 96% 04/25/2017 10:07 AM CDT Inhaled Oxygen Concentration - - Weight 147.4 kg (325 lb) 04/25/2017 10:07 AM CDT Height 193 cm (6' 4) 04/25/2017 10:07 AM CDT Body Mass Index 39.56 04/25/2017 10:07 AM CDT Plan of Treatment Health Maintenance Due Date Last Done Comments COLOGUARD (AGES 45-75) - COL ON CA SCREENING 1952 COLON MONITORING 1952 COLONOSCOPY - COLON CA SCREENING 1952 CT COLONOGRAPHY - COLON CA SCREENING 1952 Colorectal Cancer Screening 1952 FIT - COLON CA SCREENING 1952 FLEX SIG - COLON CA SCREENING 1952 HEPATITIS C SCREENING 09/14/1970 DTAP/TDAP/TD VACCINES (1 - Tdap) 1971 PNEUMOCOCCAL VACCINE 50+ (1 of 1 - PCV) 2002 ZOSTER VACCINE (1 of 2) 2002 DEPRESSION SCREENING 11/09/2024 MEDICARE AWV CALENDAR YEAR 2024 COVID-19 VACCINE (1 - 2023-2 5 season) 2025 INFLUENZA VACCINE (#1) 2025 Respiratory Syncytial Virus (RSV) Vaccine Pt: or over 60 yrs (1 - 1-dose 75+ series) 2027 HEPATITIS B VACCINE Aged Out No longe r eligible based on patient's age to complete this topic HIB VACCINE Aged Out No longer eligi ble based on patient's age to complete this topic HPV VACCINE Aged Out No longer eligi ble based on patient's age to complete this topic MENINGOCOCCAL (Group B) VACC INE SHARED DECISION-MAKING Aged Out No longer eligibl e based on patient's age to complete this topic MENINGOCOCCAL GROUPS A/C/Y/W VACCINE Aged Out No longer eligible b ased on patient's age to complete this topic Insurance [employer] [facility] SELF PAY NO INSURANCE Member Subscriber Plan / Payer (Ef fective for All Dates) Name:Alber Tan Member ID:Not on file Relation to Subscriber:Not on file Name:ALBER TAN Subscriber ID:Not on file (Home) Address: [address] [place] [id number] Payer ID:Not on file Group ID:Not on file Type:Self Pay Address: [place], [place] [employer] [address] Care Teams Database Security Administrator Relationship Specialty Start Date End Date Everett Guerrero MD [address] [place] [address] [address] [place] [address] PCP - General Internal Medicine 04/25/17
--- NOTE | 2025-10-09 10:18 | WPDSLEEPSTUD ---
Sleep Study Date of Study: 09/11/25 Ordering Provider: Kody MonteMD Interpreting Physician: Amanda Alba DO Sleep Study Type: Polysomnogram Height: 1.88 m Weight: 161.388 kg Body Mass Index: 45.6 Neck Circumference (inches): 19.5 [place]: 3 Reason for Sleep Study The patient is currently on CPAP and his pressure was recently changed to 4 cm H2O. He has an elevated residual AHI on compliance data. The patient is not compliant with CPAP therapy. Sleep History The patient is a 75 year old male that had a sleep study ordered by his fisheries technician for evaluation of sleep apnea. The patient did not complete the sleep questionnaire packet. [facility] Past Medical History Medical History Colon polyp Pre-diabetes Peripheral arterial disease with history of revascularization Left leg THERESA (obstructive sleep apnea) Noncompliant with CPAP Polysomnogram July 2022: Demonstrated mild obstructive sleep apnea recommended auto PAP 5-15 cm of water Chronic anemia Chronic, mild normocytic anemia. Gastroesophageal reflux disease Pancreatitis (09/2018) Hyperlipidemia Coronary artery disease Cardiac catheterization in 2017 showed a 50% blockage, per patient report. No intervention undertaken. Hypertension Surgical History Surgical History History of cardiac catheterization 2017 and May 2021 History of partial thyroidectomy at age 5yo History of surgical removal of ganglion cyst Left wrist. History of arthroscopy of right knee History of colonoscopy with polypectomy History of cholecystectomy Family History Family History Father Heart disease Mother Uterine cancer Sibling Hypertension Social History Social History Social History: The patient lives in [place] with his . 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 No alcohol or illicit substance abuse. He designates his , Roula, as his surrogate decision maker. Code status: Full code. Smoking status: Never smoker Alcohol intake: current Drinks per week: 1 Substance use: never Substance use type: does not use Lack of Transportation: No Lack of Food: Never True Current Housing: I Have Housing Concerned About Future Housing: No Difficulty Paying Gas/Electric Bills: No Difficulty Paying for Meds: No Currently Unemployed: No Education: High School Diploma/GED Difficulty w/ Childcare or Family Care: No Living arrangements: with family Gender identity (if verbalized by the patient): Male Spiritual care concerns: No Medications Home Medications ?Medication ?Instructions ?Recorded ?Confirmed ?Type aspirin 81 mg tablet,delayed 81 mg PO DAILY 09/15/20 09/20/24 History release atorvastatin 40 mg tablet 40 mg PO DAILY 09/15/20 09/20/24 History omeprazole 20 mg capsule,delayed 20 mg PO DAILY 09/15/20 09/20/24 History release hydrochlorothiazide 25 mg tablet 25 mg PO DAILY 07/06/24 09/20/24 History mecobalamin (vitamin B12) 500 mcg 500 mcg PO QMWF 07/06/24 09/20/24 History chewable tablet metoprolol tartrate 25 mg tablet 25 mg PO BID 07/06/24 09/20/24 History nitroglycerin 0.4 mg sublingual 0.4 mg sublingual Q5-15M PRN Chest 07/06/24 09/20/24 History tablet Pain spironolactone 50 mg tablet 50 mg PO DAILY 07/06/24 09/20/24 History vitamin E 268 mg (400 unit) capsule 500 mg PO DIRECTED 07/06/24 09/20/24 History isosorbide dinitrate 30 mg tablet 30 mg PO DAILY 09/08/24 09/20/24 History losartan 100 mg tablet 100 mg PO DAILY 09/08/24 09/20/24 History metformin 500 mg tablet 500 mg PO BID 09/08/24 09/20/24 History Sleep Procedure A full night polysomnogram using the [employer] multi-channel system recorded the standard physiologic parameters including EEG, EOG, submentalis EMG, anterior tibialis EMG, EKG, body position, nasal and oral airflow using nasal pressure sensor and thermistor.? Respiratory parameters of chest and abdominal movements were recorded with Respiratory Inductance Plethysmography belts. Oxygen saturation was recorded by pulse oximetry. Video monitoring was also performed. Sleep stages, periodic limb movements, and EEG arousals were scored in 30 second epochs according to the criteria of the AASM Scoring Manual. The Apnea-Hypopnea Index was calculated using CMS guidelines for definition of hypopnea with 4% O2 desaturations while scoring respiratory events. Sleep Architecture The total recording time was 411.7 minutes.? The total sleep time was 319.5 minutes. Sleep latency was 4.9 minutes. REM latency was 183.5 minutes. Sleep efficiency was 77.6%. The patient had 26 awakenings for an awakening index of 4.9. Wake after sleep onset time was 85.0 minutes. The patient spent 30.5 minutes, 9.5% of total sleep time in Stage N1. The patient spent 250.0 minutes, 78.2% in Stage N2. The patient spent 0.0 minutes, 0.0% in Stage N3. The patient spent 39.0 minutes, 12.2% in Stage REM sleep. Respiratory Analysis The patient had 9 hypopneas, 8 obstructive apneas and 3 central apneas for an overall Apnea Hypopnea Index of 3.8. The REM Apnea Hypopnea Index was 21.5. The NREM Apnea Hypopnea Index was 1.3. The patient had a Central Apnea Hypopnea Index of 0.6. There was no evidence of Leo-Ribeiro Respirations. Arousals There were 72 total arousals for an arousal index of 13.5. There were 34 spontaneous arousals for an index of 6.4. There was 1 arousal due to respiratory events for an index of 0.2. There were 37 arousals due to periodic limb movements for an index of 6.9.? There was 1 arousal due to isolated limb movements for an index of 0.2. Periodic Limb Movements The patient had 8 isolated limb movements with an index of 1.5. The patient had 715 periodic limb movements with an index of 134.3, which is elevated (normal < 15). Patient had a total of 723 limb movements with a total limb movement index of 135.8. Oximetry Data The patient had an average oxygen saturation of 95.5% in sleep with a minimum oxygen saturation of 86.0% and a maximum oxygen saturation of 99.0%. The patient had 12 oxygen desaturations that were 4% or greater resulting in an Oxygen Desaturation Index of 2.3.? The patient spent 0.4 minutes, 0.1% of total sleep time with an oxygen saturation below 88%. Snoring Profile Moderate snoring was present throughout the study. Cardiac Profile The EKG showed normal sinus rhythm.?No arrhythmias or premature beats were seen. The patient had an average pulse rate of 68.5 bpm with a minimum pulse of rate of 54.0 bpm and a maximum pulse rate of 104.0 bpm.? EEG Profile No signs of seizure activity seen. Assessment and Plan Assessment and Plan (1) Sleep disturbances: Code(s): G47.9 - Sleep disorder, unspecified Status: Acute Assessment and Plan: The patient had an overall AHI of 3.8 with desaturation down to 86%. This is not consistent with sleep-disordered breathing. If the patient used his CPAP machine up until the night of the sleep study, this could be a false negative. If there are still concerns for a sleep disorder, I recommend that the patient repeat the sleep study after not using his CPAP machine after 3 consecutive nights prior to the study. The patient had a significant number of limb movements during the study with the majority being periodic in nature. I recommend that the patient have a serum ferritin drawn for evaluation of iron deficiency anemia. If the patient has a serum ferritin less than 75 ng/mL, I recommend starting a daily iron supplement and a Vitamin C supplement for better absorption. If the serum ferritin is greater than 75 ng/mL, I recommend starting a dopamine agonist and titrating the dose until symptoms resolve. There are nonpharmacological methods to treat limb movements including daily exercise, stretching calf muscles before bed, avoiding excessive amounts of caffeine and alcohol, vitamin B supplementation, magnesium lotion massaged into legs before bed, and use of a weighted blanket. Data The data obtained during this sleep study is adequate for interpretation. Certification This sleep study has been reviewed by a board certified sleep medicine physician.
[2025-10-16 11:58] VITALS: BMI 45.6
== END 2025-09-12 06:50 | disposition home or self-care (01) ==
PROVIDERS: PCP Internal Medicine; Visit Provider Internal Medicine Pulmonary Disease
DX: G47.30 Sleep apnea, unspecified (principal); G47.9 Sleep disorder, unspecified
CPT/HCPCS: 95810; 95811